=== PATIENT | male | born 1935 | race Caucasian/White ===

== ENCOUNTER 2018-04-20 00:29 | Inpatient (IN) | payer MEDICARE, BC ==
[2018-04-20] MEDS ORDERED: SODIUM CHLORIDE 0.9% 1,000 ML IV ONE (00:51)
[2018-04-20] MEDS ORDERED: SODIUM CHLORIDE 0.9% 2,000 ML IV ONE (00:52)
[2018-04-20 01:25] LABS: Basophils % (A) 0 %; Eosinophils % (A) 0 %; HGB 12.2 gm/dL (13.0-17.5); Lymphocytes # (A) 0.7 k/uL (1.0-4.8); Lymphocytes % (A) 4 %; MCH 34.3 pg (25.0-35.0); MCHC 33.1 g/dL (31.0-37.0); MCV 103.6 fL (80.0-100.0); Macrocytosis Slight; Mean Platelet Volume 8.7; Monocytes # (A) 0.9 k/uL (0-1.0); Monocytes % (A) 5 %; Neutrophils % (A) 91 %; Platelet Count 104 k/uL (150-450); RBC 3.57 m/uL (4.30-5.90); WBC 17.7 k/uL (3.8-10.6)
[2018-04-20 01:33] LABS: Glucose,Whole Blood 138 mg/dL (75-99)
[2018-04-20 01:36] LABS: ALT 59 U/L (21-72); AST 215 U/L (17-59); Albumin 3.3 g/dL (3.5-5.0); Alkaline Phosphatase 77 U/L (38-126); Anion Gap 14 mmol/L; Blood Urea Nitrogen 31 mg/dL (9-20); Calcium 8.7 mg/dL (8.4-10.2); Carbon Dioxide 16 mmol/L (22-30); Chloride 111 mmol/L (98-107); Glucose 146 mg/dL (74-99); Lipase 14 U/L (23-300); Potassium 4.7 mmol/L (3.5-5.1); Sodium 141 mmol/L (137-145); Total Bilirubin 2.7 mg/dL (0.2-1.3); Total Protein 6.5 g/dL (6.3-8.2)
[2018-04-20 01:37] LABS: INR 1.7 (<1.2); Partial Thromboplastin Time 24.4 sec (22.0-30.0)
[2018-04-20] MEDS ORDERED: IPRATROPIUM-ALBUTEROL 3 ML NEB INHALATION STA (02:10)
--- NOTE | 2018-04-20 02:15 | CT ---
EXAMINATION TYPE: CT brain wo con DATE OF EXAM: 04/20/2018 COMPARISON: None HISTORY: No prior, pt found on the ground by family, AMS CT DLP: 1622.80 mGycm Automated exposure control for dose reduction was used. FINDINGS: There is cerebral cortical atrophy. There is no mass effect nor midline shift. There is no sign of in tracranial hemorrhage. There is left parietal mild scalp soft tissue swelling. IMPRESSION: CEREBRAL ATROPHY. NO ACUTE INTRACRANIAL ABNORMALITY.
--- NOTE | 2018-04-20 02:17 | XR ---
EXAMINATION TYPE: XR pelvis AP view DATE OF EXAM: 04/20/2018 COMPARISON: 12/04/2011 HISTORY: Fall. Pain. TECHNIQUE: Single view. FINDINGS: Pelvic ring is intact. Proximal femurs appear intact. There is extensive vascular calcification. Sac roiliac joints appear intact. There is acetabular spurring. IMPRESSION: No acute abnormality of the pelvis. No change.
[2018-04-20 02:18] LABS: Creatine Kinase MB 57.8 ng/mL (0.0-2.4)
[2018-04-20 02:19] LABS: Troponin I 0.166 ng/mL (0.000-0.034)
--- NOTE | 2018-04-20 02:19 | XR ---
EXAMINATION TYPE: XR chest 1V DATE OF EXAM: 04/20/2018 COMPARISON: EXAMINATION TYPE: XR chest 1V DATE OF EXAM: 04/20/2018 COMPARISON: NONE HISTORY: Chest pain TECHNIQUE: Single view FINDINGS: There is poor inspiration. There is elevation of the left and right diaphragm. There is mil d pulmonary congestion. There are sternal wires. Thoracic aorta is atheromatous. IMPRESSION: Poor inspiration. Possible congestive heart failure. Limited exam.
--- NOTE | 2018-04-20 02:43 | ED ---
General Adult HPI - General Source: patient, family, EMS Mode of arrival: EMS Limitations: altered mental status, physical limitation <Nilo Garcia - Last Filed: 04/20/18 03:14> <Darlene Farmer - Last Filed: 04/25/18 23:20> - General Chief complaint: Fall Stated complaint: fall Time Seen by Provider: 04/20/18 00:35 - History of Present Illness Initial comments: This is an 83-year-old male presents emergency department via EMS for apparent fall area patient was found in the ground by family states that they believe these been on the ground for almost 24 hours. Patient apparently told EMS that he was trying to find something on the ground. The patient is confused and information is limited. Patient states that he hurts on his left hip. Denies any headache, dizziness, blurred vision, chest pain or shortness of breath. Patient does state that he is very thirsty, feels very weak and rundown. Family states that he is normally ambulatory, he does have some mild confusion baseline. Family does state that he has scheduled tomorrow for weight gain, increase abdominal size. (Nilo Garcia) - Related Data Home Medications Medication Instructions Recorded Confirmed Memantine [Namenda] 10 mg PO BID 04/20/18 04/20/18 Metoprolol Succinate [Toprol Xl] 25 mg PO DAILY 04/20/18 04/20/18 Simvastatin [Zocor] 20 mg PO HS 04/20/18 04/20/18 amLODIPine [Norvasc] 2.5 mg PO DAILY 04/20/18 04/20/18 metFORMIN HCL ER [Glucophage Xr] 500 mg PO PC-SUPPER 04/20/18 04/20/18 Allergies Allergy/AdvReac Type Severity Reaction Status Date / Time No Known Allergies Allergy Verified 04/20/18 09:01 Review of Systems ROS Other: All systems not noted in ROS Statement are negative. <Nilo Garcia - Last Filed: 04/20/18 03:14> ROS Other: All systems not noted in ROS Statement are negative. <Darlene Farmer - Last Filed: 04/25/18 23:20> ROS Statement: Those systems with pertinent positive or pertinent negative responses have been documented in the HPI. Past Medical History Past Medical History: Atrial Fibrillation, Dementia, Diabetes Mellitus, Hyperlipidemia, Hypertension Additional Past Medical History / Comment(s): bone marrow suppression. abdominal mass. aortic aneurysm. History of Any Multi-Drug Resistant Organisms: None Reported Past Surgical History: Coronary Bypass/CABG Additional Past Surgical History / Comment(s): quadruple bypass, Past Psychological History: No Psychological Hx Reported Smoking Status: Never smoker Past Alcohol Use History: None Reported Past Drug Use History: None Reported <Nilo Garcia M - Last Filed: 04/20/18 03:14> - Past Family History Father Family Medical History: Vascular Disorder Additional Family Medical History / Comment(s): Father from a ruptured aortic aneurysm. Mother Family Medical History: Dementia, Diabetes Mellitus Additional Family Medical History / Comment(s): Mother lived to be 100yrs old. Son(s) Family Medical History: Vascular Disorder Additional Family Medical History / Comment(s): Son from a ruptured aortic aneurysm. Family Additional Family Medical History / Comment(s): Unable to obtain family history at this time due to patient confusion and not available family members <Darlene Farmer - Last Filed: 04/25/18 23:20> General Exam Limitations: altered mental status (Patient confused), physical limitation General appearance: alert, in no apparent distress Head exam: Present: atraumatic, normocephalic, normal inspection Eye exam: Present: normal appearance, PERRL, EOMI. Absent: scleral icterus, conjunctival injection, periorbital swelling ENT exam: Present: mucous membranes dry, mucous membranes moist Neck exam: Present: normal inspection, full ROM. Absent: tenderness, meningismus, lymphadenopathy Respiratory exam: Present: normal lung sounds bilaterally. Absent: respiratory distress, wheezes, rales, rhonchi, stridor Cardiovascular Exam: Present: irregular rhythm, normal heart sounds. Absent: regular rate, normal rhythm, systolic murmur, diastolic murmur, rubs, gallop, clicks GI/Abdominal exam: Present: soft, normal bowel sounds. Absent: distended, tenderness, guarding, rebound, rigid Extremities exam: Present: pedal edema, other (Mild tenderness to left hip, lower extremities neurovascular intact) Back exam: Present: full ROM. Absent: tenderness Neurological exam: Present: alert, CN II-XII intact, reflexes normal. Absent: oriented X3, motor sensory deficit Skin exam: Present: warm, dry, normal color. Absent: intact (Sloughing of skin noted on the left hip and minimal on the right side), rash <Nilo Garcia - Last Filed: 04/20/18 03:14> Vital Signs 04/20/18 04/20/18 04/20/18 00:30 02:18 02:19 Temperature 96.8 F L Pulse Rate 73 70 72 Respiratory 18 24 Rate Blood Pressure 134/66 141/86 O2 Sat by Pulse 97 98 Oximetry 04/20/18 04/20/18 04/20/18 02:30 03:16 05:22 Temperature 97.3 F L Pulse Rate 73 80 76 Respiratory 22 18 Rate Blood Pressure 150/83 130/61 O2 Sat by Pulse 98 100 Oximetry 04/20/18 04/20/18 04/20/18 06:15 08:52 11:19 Temperature Pulse Rate 82 85 80 Respiratory 20 18 18 Rate Blood Pressure 160/69 141/86 143/69 O2 Sat by Pulse 97 97 100 Oximetry 04/20/18 04/20/18 04/20/18 13:25 17:45 18:44 Temperature 98.7 F 98.1 F Pulse Rate 79 75 81 Respiratory 18 20 20 Rate Blood Pressure 123/61 146/66 107/58 O2 Sat by Pulse 100 98 97 Oximetry EKG Findings - EKG Comments: EKG Findings:: EKG performed at 2:07 A. fib with a rate of 75 QRS 64 QT/QTC 434/ 484 <Nilo Garcia - Last Filed: 04/20/18 03:14> Medical Decision Making - Lab Data Result diagrams: 04/20/18 01:06 04/20/18 01:06 <Nilo Garcia - Last Filed: 04/20/18 03:14> - Lab Data Result diagrams: 04/24/18 05:40 04/24/18 05:40 <Darlene Farmer - Last Filed: 04/25/18 23:20> - Medical Decision Making 83-year-old male presented to the emergency department for fall. Patient is found to be in rhabdomyolysis secondary to falling and being on the ground for a prolonged period of time. Patient is dehydrated, does have some confusion which is worse per family. CT of the brain was obtained no acute findings. Patient had chest x-ray are which appears to be related to congestive heart failure with a BNP of 4200. X-ray of pelvis was obtained which showed no acute fracture though he did complain of left hip pain and appeared to have's deformity CT is obtained no acute fracture. Patient was given initial 2 L bolus of fluid secondary to rhabdomyolysis, maintenance at 100. Muñoz was placed for accurate output at this time. Patient's troponin was elevated time repeat troponin will be obtained 2. Patient has no current complaints of chest pain patient had EKG which shows A. fib. Patient will be admitted for management of his rhabdomyolysis, CHF, dehydration, confusion, unsteady gait, weakness. (Nilo Garcia) Patient care was signed out to me by MAGDI Rocha. Patient presented to the ER acute distress after a mechanical fall at home and being on the ground for approximately 24 hours. Labs thus far had indicated the patient had rhabdomyolysis and a mildly elevated troponin. At time of sign out patient was receiving IV fluids, x-rays and CTs revealed no acute injuries. Urinalysis was pending. Urinalysis resulted with no evidence of urinary tract infection. This time is no indication for antibiotics. Patient will be treated with IV fluids, however considering his advanced age and respiratory status want to be gentle with this. Patient care was discussed with Dr. Acuna of the [facility] who accepts the admission. (Darlene Farmer) - Lab Data Lab Results 04/20/18 04/20/18 04/20/18 Range/Units 01:03 01:06 01:06 WBC 17.7 H (3.8-10.6) k/uL RBC 3.57 L (4.30-5.90) m/uL Hgb 12.2 L (13.0-17.5) gm/dL Hct 37.0 L (39.0-53.0) % MCV 103.6 H (80.0-100.0) fL MCH 34.3 (25.0-35.0) pg MCHC 33.1 (31.0-37.0) g/dL RDW 14.0 (11.5-15.5) % Plt Count 104 L (150-450) k/uL Neutrophils % 91 % Lymphocytes % 4 % Monocytes % 5 % Eosinophils % 0 % Basophils % 0 % Neutrophils # 16.0 H (1.3-7.7) k/uL Lymphocytes # 0.7 L (1.0-4.8) k/uL Monocytes # 0.9 (0-1.0) k/uL Eosinophils # 0.0 (0-0.7) k/uL Basophils # 0.0 (0-0.2) k/uL Macrocytosis Slight PT (9.0-12.0) sec INR (<1.2) APTT (22.0-30.0) sec Sodium (137-145) mmol/L Potassium (3.5-5.1) mmol/L Chloride (98-107) mmol/L Carbon Dioxide (22-30) mmol/L Anion Gap mmol/L BUN (9-20) mg/dL Creatinine (0.66-1.25) mg/dL Est GFR (CKD-EPI)AfAm (>60 ml/min/1.73 sqM) Est GFR (CKD-EPI)NonAf (>60 ml/min/1.73 sqM) Glucose (74-99) mg/dL POC Glucose (mg/dL) 138 H (75-99) mg/dL POC Glu Portable [employer] Tool Repairer ID Marilee Quach Calcium (8.4-10.2) mg/dL Total Bilirubin (0.2-1.3) mg/dL AST (17-59) U/L ALT (21-72) U/L Alkaline Phosphatase (38-126) U/L Total Creatine Kinase 5245 H* (55-170) U/L CK-MB (CK-2) 57.8 H (0.0-2.4) ng/mL CK-MB (CK-2) Rel Index Troponin I 0.166 H* (0.000-0.034) ng/mL NT-Pro-B Natriuret Pep pg/mL Total Protein (6.3-8.2) g/dL Albumin (3.5-5.0) g/dL Lipase (23-300) U/L Urine Color Urine Appearance (Clear) Urine pH (5.0-8.0) Ur Specific Jay Em (1.001-1.035) Urine Protein (Negative) Urine Glucose (UA) (Negative) Urine Ketones (Negative) Urine Blood (Negative) Urine Nitrite (Negative) Urine Bilirubin (Negative) Urine Urobilinogen (<2.0) mg/dL Ur Leukocyte Esterase (Negative) Urine RBC (0-5) /hpf Urine WBC (0-5) /hpf Ur Squamous Epith Cells (0-4) /hpf Urine Mucus (None) /hpf 04/20/18 04/20/18 04/20/18 Range/Units 01:06 01:06 01:06 WBC (3.8-10.6) k/uL RBC (4.30-5.90) m/uL Hgb (13.0-17.5) gm/dL Hct (39.0-53.0) % MCV (80.0-100.0) fL MCH (25.0-35.0) pg MCHC (31.0-37.0) g/dL RDW (11.5-15.5) % Plt Count (150-450) k/uL Neutrophils % % Lymphocytes % % Monocytes % % Eosinophils % % Basophils % % Neutrophils # (1.3-7.7) k/uL Lymphocytes # (1.0-4.8) k/uL Monocytes # (0-1.0) k/uL Eosinophils # (0-0.7) k/uL Basophils # (0-0.2) k/uL Macrocytosis PT 16.0 H (9.0-12.0) sec INR 1.7 H (<1.2) APTT 24.4 (22.0-30.0) sec Sodium 141 (137-145) mmol/L Potassium 4.7 (3.5-5.1) mmol/L Chloride 111 H (98-107) mmol/L Carbon Dioxide 16 L (22-30) mmol/L Anion Gap 14 mmol/L BUN 31 H (9-20) mg/dL Creatinine 0.73 (0.66-1.25) mg/dL Est GFR (CKD-EPI)AfAm >90 (>60 ml/min/1.73 sqM) Est GFR (CKD-EPI)NonAf 85 (>60 ml/min/1.73 sqM) Glucose 146 H (74-99) mg/dL POC Glucose (mg/dL) (75-99) mg/dL POC Glu Portable [employer] Tool Repairer ID Calcium 8.7 (8.4-10.2) mg/dL Total Bilirubin 2.7 H (0.2-1.3) mg/dL AST 215 H (17-59) U/L ALT 59 (21-72) U/L Alkaline Phosphatase 77 (38-126) U/L Total Creatine Kinase (55-170) U/L CK-MB (CK-2) (0.0-2.4) ng/mL CK-MB (CK-2) Rel Index Troponin I (0.000-0.034) ng/mL NT-Pro-B Natriuret Pep 4370 pg/mL Total Protein 6.5 (6.3-8.2) g/dL Albumin 3.3 L (3.5-5.0) g/dL Lipase 14 L (23-300) U/L Urine Color Urine Appearance (Clear) Urine pH (5.0-8.0) Ur Specific Jay Em (1.001-1.035) Urine Protein (Negative) Urine Glucose (UA) (Negative) Urine Ketones (Negative) Urine Blood (Negative) Urine Nitrite (Negative) Urine Bilirubin (Negative) Urine Urobilinogen (<2.0) mg/dL Ur Leukocyte Esterase (Negative) Urine RBC (0-5) /hpf Urine WBC (0-5) /hpf Ur Squamous Epith Cells (0-4) /hpf Urine Mucus (None) /hpf 04/20/18 Range/Units 03:08 WBC (3.8-10.6) k/uL RBC (4.30-5.90) m/uL Hgb (13.0-17.5) gm/dL Hct (39.0-53.0) % MCV (80.0-100.0) fL MCH (25.0-35.0) pg MCHC (31.0-37.0) g/dL RDW (11.5-15.5) % Plt Count (150-450) k/uL Neutrophils % % Lymphocytes % % Monocytes % % Eosinophils % % Basophils % % Neutrophils # (1.3-7.7) k/uL Lymphocytes # (1.0-4.8) k/uL Monocytes # (0-1.0) k/uL Eosinophils # (0-0.7) k/uL Basophils # (0-0.2) k/uL Macrocytosis PT (9.0-12.0) sec INR (<1.2) APTT (22.0-30.0) sec Sodium (137-145) mmol/L Potassium (3.5-5.1) mmol/L Chloride (98-107) mmol/L Carbon Dioxide (22-30) mmol/L Anion Gap mmol/L BUN (9-20) mg/dL Creatinine (0.66-1.25) mg/dL Est GFR (CKD-EPI)AfAm (>60 ml/min/1.73 sqM) Est GFR (CKD-EPI)NonAf (>60 ml/min/1.73 sqM) Glucose (74-99) mg/dL POC Glucose (mg/dL) (75-99) mg/dL POC Glu Portable Power Tool Repairer ID Calcium (8.4-10.2) mg/dL Total Bilirubin (0.2-1.3) mg/dL AST (17-59) U/L ALT (21-72) U/L Alkaline Phosphatase (38-126) U/L Total Creatine Kinase (55-170) U/L CK-MB (CK-2) (0.0-2.4) ng/mL CK-MB (CK-2) Rel Index Troponin I (0.000-0.034) ng/mL NT-Pro-B Natriuret Pep pg/mL Total Protein (6.3-8.2) g/dL Albumin (3.5-5.0) g/dL Lipase (23-300) U/L Urine Color Yellow Urine Appearance Clear (Clear) Urine pH 5.5 (5.0-8.0) Ur Specific Jay Em 1.027 (1.001-1.035) Urine Protein 1+ H (Negative) Urine Glucose (UA) Negative (Negative) Urine Ketones 1+ H (Negative) Urine Blood Moderate H (Negative) Urine Nitrite Negative (Negative) Urine Bilirubin Negative (Negative) Urine Urobilinogen 2.0 (<2.0) mg/dL Ur Leukocyte Esterase Negative (Negative) Urine RBC 1 (0-5) /hpf Urine WBC 1 (0-5) /hpf Ur Squamous Epith Cells <1 (0-4) /hpf Urine Mucus Rare H (None) /hpf Disposition <Nilo Garcia M - Last Filed: 04/20/18 03:14> <Darlene Farmer - Last Filed: 04/25/18 23:20> Clinical Impression: Fall, Rhabdomyolysis, CHF (congestive heart failure), Dehydration, Confusion, Weakness, Anemia, Elevated troponin, A-fib Disposition: ADMITTED IP TO THIS HOSP
--- NOTE | 2018-04-20 03:08 | CT ---
EXAMINATION TYPE: CT hip LT wo con DATE OF EXAM: 04/20/2018 COMPARISON: None HISTORY: No prior, fall; evaluate for trauma pain CT DLP: 1056.80 mGycm Automated exposure control for dose reduction was used. FINDINGS: There is osteopenia. There is extensive vascular calcification. The proximal left femur is intact wit hout evidence of a fracture. The acetabulum is intact. There is mild acetabular spurring. The left sa croiliac joint is intact. There is subcutaneous swelling over the lateral aspect of the left hip. IMPRESSION: SOFT TISSUE SWELLING. NO FRACTURE SEEN. OSTEOPENIA.
[2018-04-20] MEDS: SODIUM CHLORIDE 0.9% 1,000 ML IV SCH ×4 (03:19→23:10)
[2018-04-20 03:23] LABS: Appearance,Urine Clear (Clear); Bilirubin,Urine Negative (Negative); Blood,Urine Moderate (Negative); Color,Urine Yellow; Glucose,Urine (UA) Negative (Negative); Ketones,Urine 1+ (Negative); Leukocyte Esterase,Urine Negative (Negative); Mucus,Urine Rare /hpf; Nitrite,Urine Negative (Negative); PH, Urine 5.5 (5.0-8.0); Protein,Urine 1+ (Negative); RBC,Urine 1 /hpf (0-5); Specific Gravity,Urine 1.027 (1.001-1.035); Squamous Epithelial Cell,Urine <1 /hpf (0-4); WBC,Urine 1 /hpf (0-5)
[2018-04-20] MEDS ORDERED: NALOXONE 0.4 MG/ML 1 ML VIAL IV PRN (04:34)
--- NOTE | 2018-04-20 06:56 | P.HPIM ---
History of Present Illness H&P Date: 04/20/18 Chief Complaint: confusion, fall at home 83 year old male with history of afib, and dementia. patient is alert but confused , unable to provide any meaningful history. His daughter has just stepped out to sleep for couple hours in the parking lot. history obtained by talking to the patient , reviewing medical records and talking to patient nurse. patient was brought to the hospital after being found on the ground by his family who believes that he's been on the ground for at least 24 hours. Patient at baseline ambulates using a walker. However for some reason he is thought to have fell down, when the patient is asked he said he was looking for something on the ground. There is no report of soiling with urine or feces or vomitus. It seems like when the patient was found he was alert and awake but confused more than his baseline. He was complaining of left hip pain, EMS was contacted and was brought to the hospital. Family reported that the only changes in his health status as they have noticed that his belly was growing bigger and he was having some edema in his legs for which she was scheduled for an ultrasound of the abdomen today to rule out any abdominal masses. Upon further workup, no acute fractures were identified, CT of the head showed no acute process. Labwork showed elevated CPK, and elevated liver enzymes. Patient denies any chest pain or trouble breathing. Patient received 2 L boluses of IV fluid normal saline in the ED after which she was wheezy for short period but then balance resolved with inhalers. Review of Systems Unable to obtain any meaningful review of systems due to patient confusion Past Medical History Past Medical History: Atrial Fibrillation, Dementia, Diabetes Mellitus, Hyperlipidemia, Hypertension Additional Past Medical History / Comment(s): bone marrow suppression. abdominal mass. aortic aneurysm. History of Any Multi-Drug Resistant Organisms: None Reported Past Surgical History: Coronary Bypass/CABG Additional Past Surgical History / Comment(s): quadruple bypass, Past Psychological History: No Psychological Hx Reported Smoking Status: Never smoker Past Alcohol Use History: None Reported Past Drug Use History: None Reported - Past Family History Family Additional Family Medical History / Comment(s): Unable to obtain family history at this time due to patient confusion and not available family members Medications and Allergies Home Medications Medication Instructions Recorded Confirmed Type Memantine [Namenda] 2.5 mg PO DAILY 04/20/18 04/20/18 History Metoprolol Succinate (ER) [Toprol 25 mg PO DAILY 04/20/18 04/20/18 History XL] Simvastatin [Zocor] 20 mg PO HS 04/20/18 04/20/18 History amLODIPine [Norvasc] 10 mg PO DAILY 04/20/18 04/20/18 History metFORMIN HCL ER [Glucophage Xr] 500 mg PO PC-SUPPER 04/20/18 04/20/18 History Allergies Allergy/AdvReac Type Severity Reaction Status Date / Time No Known Allergies Allergy Verified 04/20/18 00:57 Physical Exam Vitals: Vital Signs Temp Pulse Resp BP Pulse Ox 04/20/18 05:22 76 18 130/61 100 04/20/18 03:16 97.3 F L 80 22 150/83 98 04/20/18 02:30 73 04/20/18 02:19 72 04/20/18 02:18 70 24 141/86 98 04/20/18 00:30 96.8 F L 73 18 134/66 97 Intake and Output 04/19/18 04/19/18 04/20/18 14:59 22:59 06:59 Output Total 50 Balance -50 Output: Urine 50 Uretheral (Muñoz) 50 Other: Weight 81.647 kg Constitutional: No acute distress, conversant, pleasantly confused, seems like laying comfortable in his bed Eyes: Slight hint of scleral jaundice , moist conjunctiva, no lid-lag Pupils equal round reactive to light ENMT: NC/AT, dry mucous membranes Oropharynx clear, no erythema, or exudates Neck: Supple, limited active range of motion of the neck due to severe weakness , no palpable masses, No JVD No carotid bruits No thyromegaly Lungs: Clear to auscultation Clear to percussion Normal respiratory effort, no accessory muscle use Cardiovascular: Heart irregular in rate and rhythm, No murmurs, gallops, or rubs +1 peripheral edema bilaterally Abdominal: Soft, mild distention Nontender, no guarding, rebound or rigidity Abdomen moving with respiration Normoactive bowel sounds Palpable hepatomegaly, No splenomegaly No abdominal wall hernia noted Skin: Normal temperature, tone, texture, turgor No induration No subcutaneous nodules Patient has excoriation in the skin folds of the lower abdomen and groin two Nonblanching 1 x 1 cm areas over the left buttock Extremities: No digital cyanosis No clubbing Pedal pulses intact and symmetrical Radial pulses intact and symmetrical No calf tenderness Psychiatric: Alert and oriented to self only Cooperative with exam poor judgment Neuro Muscles Strength showing extreme weakness in all 4 extremities with sporadic areas that shows a strength of -3/5 with encouragement but not persistent Sensation to light touch grossly present throughout however unreliable Cranial nerves II-XII grossly intact (again this wasn't very reliable due to difficulties with patient understanding and cooperation with neuro exam) No focal sensory deficits could be identified Lymphatics: no palpable cervical or supraclavicular , or inguinal lymph nodes Results CBC & Chem 7: 04/20/18 01:06 04/20/18 01:06 Labs: Abnormal Lab Results - Last 24 Hours (Table) 04/20/18 04/20/18 04/20/18 Range/Units 01:03 01:06 01:06 WBC 17.7 H (3.8-10.6) k/uL RBC 3.57 L (4.30-5.90) m/uL Hgb 12.2 L (13.0-17.5) gm/dL Hct 37.0 L (39.0-53.0) % MCV 103.6 H (80.0-100.0) fL Plt Count 104 L (150-450) k/uL Neutrophils # 16.0 H (1.3-7.7) k/uL Lymphocytes # 0.7 L (1.0-4.8) k/uL PT (9.0-12.0) sec INR (<1.2) Chloride (98-107) mmol/L Carbon Dioxide (22-30) mmol/L BUN (9-20) mg/dL Glucose (74-99) mg/dL POC Glucose (mg/dL) 138 H (75-99) mg/dL Total Bilirubin (0.2-1.3) mg/dL AST (17-59) U/L Total Creatine Kinase 5245 H* (55-170) U/L CK-MB (CK-2) 57.8 H (0.0-2.4) ng/mL Troponin I 0.166 H* (0.000-0.034) ng/mL Albumin (3.5-5.0) g/dL Lipase (23-300) U/L Urine Protein (Negative) Urine Ketones (Negative) Urine Blood (Negative) Urine Mucus (None) /hpf 04/20/18 04/20/18 04/20/18 Range/Units 01:06 01:06 03:08 WBC (3.8-10.6) k/uL RBC (4.30-5.90) m/uL Hgb (13.0-17.5) gm/dL Hct (39.0-53.0) % MCV (80.0-100.0) fL Plt Count (150-450) k/uL Neutrophils # (1.3-7.7) k/uL Lymphocytes # (1.0-4.8) k/uL PT 16.0 H (9.0-12.0) sec INR 1.7 H (<1.2) Chloride 111 H (98-107) mmol/L Carbon Dioxide 16 L (22-30) mmol/L BUN 31 H (9-20) mg/dL Glucose 146 H (74-99) mg/dL POC Glucose (mg/dL) (75-99) mg/dL Total Bilirubin 2.7 H (0.2-1.3) mg/dL AST 215 H (17-59) U/L Total Creatine Kinase (55-170) U/L CK-MB (CK-2) (0.0-2.4) ng/mL Troponin I (0.000-0.034) ng/mL Albumin 3.3 L (3.5-5.0) g/dL Lipase 14 L (23-300) U/L Urine Protein 1+ H (Negative) Urine Ketones 1+ H (Negative) Urine Blood Moderate H (Negative) Urine Mucus Rare H (None) /hpf Assessment and Plan Assessment: 83-year-old male with history of A. fib, diabetes mellitus, hypertension. Patient admitted as an inpatient with anticipated length of stay of more than 48 hours due to acute rhabdo myelolysis as patient was found on the ground and expected to had prolonged time on the ground. Patient has baseline confusion which seems to be worse at this time, he was also found to have elevated troponins however patient denies any chest pain or trouble breathing. Patient also have elevated liver enzymes with reports of increasing abdominal size and bilateral leg edema for which patient was scheduled to have abdominal ultrasound today to rule out any abdominal masses Patient received 2 L normal saline boluses upon presentation after which she was wheezy for short period per ER, was resolved and inhalers. Currently his lung exam is clear Plan: Acute rhabdomyolysis secondary to prolonged period of lying on the ground Patient received 2 L normal saline initially Muñoz catheter to monitor urine output Continue with gentle hydration due to initial response to 2 L normal saline where he was wheezy and chest x-ray showed some evidence of congestion Follow-up CPK Hold statin Acute metabolic encephalopathy secondary to acute rhabdo and acidosis Management as above Elevated troponin, rule out acute coronary syndrome This could be due to dehydration and demand ischemia Cardiac monitoring Trend cardiac enzymes Patient denies any chest pain or trouble breathing at this time Leukocytosis Bicytopenia with macrocytic anemia and thrombocytopenia No reported bleeding Stage I pressure ulcer present on admission possibly due to prolonged period On the ground Wound care Diabetes mellitus on oral hypoglycemic agents Hold metformin Check lactic acid Insulin sliding scale Hypertension, currently controlled Continue amlodipine and metoprolol History of dementia Functional status, patient ambulates using a walker at baseline Fall precautions PT/OT Chronic A. fib not on anticoagulation Currently rate controlled Family wasn't available at this time, daughter just stepped out to get some sleep and she will be back in couple hours Surrogate decision-maker: Patient daughter CODE STATUS: Patient cant make a decision on CODE STATUS due to confusion DVT prophylaxis: Heparin subcu 3 times a day Discussed with: Patient, ER, RN Anticipated discharge: 48-[address]: Subacute rehab A total of 60 minutes was spent on the care of this complex patient more than 50 % of the time was spent in counseling and care coordination.
[2018-04-20 08:22] LABS: ALT 57 U/L (21-72); AST 184 U/L (17-59); Albumin 2.6 g/dL (3.5-5.0); Alkaline Phosphatase 69 U/L (38-126); Anion Gap 7 mmol/L; Blood Urea Nitrogen 32 mg/dL (9-20); Calcium 8.3 mg/dL (8.4-10.2); Carbon Dioxide 21 mmol/L (22-30); Chloride 113 mmol/L (98-107); Glucose 131 mg/dL (74-99); Sodium 141 mmol/L (137-145); Total Protein 5.4 g/dL (6.3-8.2)
[2018-04-20 08:32] LABS: Creatine Kinase 3196 U/L (55-170)
[2018-04-20 08:36] LABS: Basophils % (A) 0 %; Eosinophils % (A) 0 %; HCT 32.3 % (39.0-53.0); HGB 10.8 gm/dL (13.0-17.5); Lymphocytes # (A) 0.7 k/uL (1.0-4.8); Lymphocytes % (A) 5 %; MCH 34.5 pg (25.0-35.0); MCHC 33.4 g/dL (31.0-37.0); MCV 103.2 fL (80.0-100.0); Macrocytosis Slight; Mean Platelet Volume 8.2; Monocytes # (A) 0.8 k/uL (0-1.0); Monocytes % (A) 6 %; Neutrophils % (A) 89 %; RBC 3.13 m/uL (4.30-5.90); RDW 14.2 % (11.5-15.5); WBC 14.6 k/uL (3.8-10.6)
[2018-04-20] MEDS: INSULIN ASPART 100 UNIT/ML 1 ML 10 ML VIAL SQ SCH ×4 (09:00→21:25)
[2018-04-20] MEDS ORDERED: amLODIPine 10 MG TAB PO SCH (09:00)
[2018-04-20] MEDS ORDERED: MEMANTINE 5 MG TAB PO SCH (09:00)
[2018-04-20] MEDS: HEPARIN SODIUM,PORCINE 5,000 UNIT/ML 1 ML VIAL SQ SCH ×3 (09:01→23:09)
[2018-04-20 09:08] LABS: Platelet Count 85 k/uL (150-450); Poikilocytosis (M) Present
[2018-04-20 09:10] LABS: Glucose,Whole Blood 140 mg/dL (75-99)
[2018-04-20] MEDS: amLODIPine 2.5 MG TAB PO SCH (10:29)
[2018-04-20] MEDS: FAMOTIDINE 20 MG TAB PO SCH ×2 (10:30→20:59)
[2018-04-20] MEDS: MEMANTINE 10 MG TAB PO SCH ×2 (10:31→20:59)
[2018-04-20] MEDS: NYSTATIN 100,000 UNIT/GM POWD 15 GM TOPICAL SCH ×3 (10:33→22:42)
[2018-04-20] MEDS: METOPROLOL SUCCINATE (ER) 25 MG TAB.ER.24H PO SCH (11:24)
--- NOTE | 2018-04-20 11:27 | US ---
EXAMINATION TYPE: US abdomen complete DATE OF EXAM: 04/20/2018 COMPARISON: CLINICAL HISTORY: hepatomegaly , elevated liver enzymes. Poor historian. Patient unable to turn on s linda or hold breath. Patient was scanned portable in the ER EXAM MEASUREMENTS: Liver Length: 9.8 cm Gallbladder Wall: 0.3 cm Spleen: 11.7 cm Right Kidney: 10.1 x 5.3 x 5.2 cm Left Kidney: 10.0 x 4.9 x 5.2 cm Suboptimal visualization due to overlying bowel gas, patient unable to turn or hold breath Pancreas: Obscured by bowel gas Liver: Appears small with nodular contour. Not well visualized due to ascites and overlying bowel ga s Gallbladder: no stones visualized, suboptimal visualization. LLD deferred due to patient unable to turn. Evidence for sonographic Herrera's sign: neg CBD: Obscured by overlying bowel gas CHD: obscured by overlying bowel gas Spleen: wnl, limited visualization due to bowel gas and ascites Right Kidney: Anechoic focus compatible with renal sinus cyst= 2.2 x 2.4 x 2.0cm Left Kidney: limited visualization due to bowel gas, cortical medullary differentiation is maintaine d in both kidneys Upper IVC: Obscured by overlying bowel gas Abd Aorta: Obscured by overlying bowel gas Ascites seen in all four quadrants IMPRESSION: Ascites. Limited exam. Correlate for cirrhosis. Gallbladder wall thickening may be due to ascites.
[2018-04-20 13:49] LABS: Glucose,Whole Blood 142 mg/dL (75-99)
[2018-04-20 16:11] LABS: Hemoglobin A1C 5.3 % (4.0-6.0)
[2018-04-20 18:03] LABS: Glucose,Whole Blood 132 mg/dL (75-99)
--- NOTE | 2018-04-20 18:20 | P.PN ---
Subjective Progress Note Date: 04/20/18 The patient was seen and examined with daughter and son-in-law at bedside. He was confused, and oriented only to self. He was pleasant however, and denied having any active complaints. Objective - Vital Signs Vital signs: Vital Signs Temp 98.7 F 04/20/18 17:45 Pulse 75 04/20/18 17:45 Resp 20 04/20/18 17:45 BP 146/66 04/20/18 17:45 Pulse Ox 98 04/20/18 17:45 Intake & Output 04/19/18 04/20/18 04/20/18 18:59 06:59 18:59 Output Total 60 Balance -60 Weight 81.647 kg Output: Urine 60 Uretheral (Muñoz) 50 Other: # Bowel Movements 3 - Exam General: Non-toxic, in no acute distress HEENT: NC/AT, anicteric sclerae, moist conjunctiva, no lid-lag, PERRLA, oropharynx dry, no erythema, exudates Cardiovascular: S1/S2 wnl, no murmurs, rubs, or gallops Lungs: Clear to auscultation, normal respiratory effort, no accessory muscle use Abdominal: Mildly distended, non-tender, without guarding or rebound Skin: Warm, dry Extremities: No edema or contractures Psychiatric: Oriented only to person, pleasant, conversant Neuro: Moving all extremities, intention tremor of R hand noted, not following all commands, unable to perform complete neurological examination - Labs CBC & Chem 7: 04/20/18 07:56 04/20/18 07:56 Labs: Abnormal Lab Results - Last 24 Hours (Table) 04/20/18 04/20/18 04/20/18 Range/Units 01:03 01:06 01:06 WBC 17.7 H (3.8-10.6) k/uL RBC 3.57 L (4.30-5.90) m/uL Hgb 12.2 L (13.0-17.5) gm/dL Hct 37.0 L (39.0-53.0) % MCV 103.6 H (80.0-100.0) fL Plt Count 104 L (150-450) k/uL Neutrophils # 16.0 H (1.3-7.7) k/uL Lymphocytes # 0.7 L (1.0-4.8) k/uL PT (9.0-12.0) sec INR (<1.2) Chloride (98-107) mmol/L Carbon Dioxide (22-30) mmol/L BUN (9-20) mg/dL Glucose (74-99) mg/dL POC Glucose (mg/dL) 138 H (75-99) mg/dL Plasma Lactic Acid Fernando (0.7-2.0) mmol/L Calcium (8.4-10.2) mg/dL Total Bilirubin (0.2-1.3) mg/dL AST (17-59) U/L Creatine Kinase (55-170) U/L Total Creatine Kinase 5245 H* (55-170) U/L CK-MB (CK-2) 57.8 H (0.0-2.4) ng/mL Troponin I 0.166 H* (0.000-0.034) ng/mL Total Protein (6.3-8.2) g/dL Albumin (3.5-5.0) g/dL Lipase (23-300) U/L Urine Protein (Negative) Urine Ketones (Negative) Urine Blood (Negative) Urine Mucus (None) /hpf 04/20/18 04/20/18 04/20/18 Range/Units 01:06 01:06 03:08 WBC (3.8-10.6) k/uL RBC (4.30-5.90) m/uL Hgb (13.0-17.5) gm/dL Hct (39.0-53.0) % MCV (80.0-100.0) fL Plt Count (150-450) k/uL Neutrophils # (1.3-7.7) k/uL Lymphocytes # (1.0-4.8) k/uL PT 16.0 H (9.0-12.0) sec INR 1.7 H (<1.2) Chloride 111 H (98-107) mmol/L Carbon Dioxide 16 L (22-30) mmol/L BUN 31 H (9-20) mg/dL Glucose 146 H (74-99) mg/dL POC Glucose (mg/dL) (75-99) mg/dL Plasma Lactic Acid Fernando (0.7-2.0) mmol/L Calcium (8.4-10.2) mg/dL Total Bilirubin 2.7 H (0.2-1.3) mg/dL AST 215 H (17-59) U/L Creatine Kinase (55-170) U/L Total Creatine Kinase (55-170) U/L CK-MB (CK-2) (0.0-2.4) ng/mL Troponin I (0.000-0.034) ng/mL Total Protein (6.3-8.2) g/dL Albumin 3.3 L (3.5-5.0) g/dL Lipase 14 L (23-300) U/L Urine Protein 1+ H (Negative) Urine Ketones 1+ H (Negative) Urine Blood Moderate H (Negative) Urine Mucus Rare H (None) /hpf 04/20/18 04/20/18 04/20/18 Range/Units 07:56 07:56 07:56 WBC 14.6 H (3.8-10.6) k/uL RBC 3.13 L (4.30-5.90) m/uL Hgb 10.8 L (13.0-17.5) gm/dL Hct 32.3 L (39.0-53.0) % MCV 103.2 H (80.0-100.0) fL Plt Count 85 L (150-450) k/uL Neutrophils # 13.0 H (1.3-7.7) k/uL Lymphocytes # 0.7 L (1.0-4.8) k/uL PT (9.0-12.0) sec INR (<1.2) Chloride 113 H (98-107) mmol/L Carbon Dioxide 21 L (22-30) mmol/L BUN 32 H (9-20) mg/dL Glucose 131 H (74-99) mg/dL POC Glucose (mg/dL) (75-99) mg/dL Plasma Lactic Acid Fernando 3.2 H* (0.7-2.0) mmol/L Calcium 8.3 L (8.4-10.2) mg/dL Total Bilirubin 2.0 H (0.2-1.3) mg/dL AST 184 H (17-59) U/L Creatine Kinase 3196 H* (55-170) U/L Total Creatine Kinase (55-170) U/L CK-MB (CK-2) (0.0-2.4) ng/mL Troponin I (0.000-0.034) ng/mL Total Protein 5.4 L (6.3-8.2) g/dL Albumin 2.6 L (3.5-5.0) g/dL Lipase (23-300) U/L Urine Protein (Negative) Urine Ketones (Negative) Urine Blood (Negative) Urine Mucus (None) /hpf 04/20/18 04/20/18 04/20/18 Range/Units 08:55 11:31 13:34 WBC (3.8-10.6) k/uL RBC (4.30-5.90) m/uL Hgb (13.0-17.5) gm/dL Hct (39.0-53.0) % MCV (80.0-100.0) fL Plt Count (150-450) k/uL Neutrophils # (1.3-7.7) k/uL Lymphocytes # (1.0-4.8) k/uL PT (9.0-12.0) sec INR (<1.2) Chloride (98-107) mmol/L Carbon Dioxide (22-30) mmol/L BUN (9-20) mg/dL Glucose (74-99) mg/dL POC Glucose (mg/dL) 140 H 142 H (75-99) mg/dL Plasma Lactic Acid Fernando 2.6 H* (0.7-2.0) mmol/L Calcium (8.4-10.2) mg/dL Total Bilirubin (0.2-1.3) mg/dL AST (17-59) U/L Creatine Kinase (55-170) U/L Total Creatine Kinase (55-170) U/L CK-MB (CK-2) (0.0-2.4) ng/mL Troponin I (0.000-0.034) ng/mL Total Protein (6.3-8.2) g/dL Albumin (3.5-5.0) g/dL Lipase (23-300) U/L Urine Protein (Negative) Urine Ketones (Negative) Urine Blood (Negative) Urine Mucus (None) /hpf 04/20/18 Range/Units 17:55 WBC (3.8-10.6) k/uL RBC (4.30-5.90) m/uL Hgb (13.0-17.5) gm/dL Hct (39.0-53.0) % MCV (80.0-100.0) fL Plt Count (150-450) k/uL Neutrophils # (1.3-7.7) k/uL Lymphocytes # (1.0-4.8) k/uL PT (9.0-12.0) sec INR (<1.2) Chloride (98-107) mmol/L Carbon Dioxide (22-30) mmol/L BUN (9-20) mg/dL Glucose (74-99) mg/dL POC Glucose (mg/dL) 132 H (75-99) mg/dL Plasma Lactic Acid Fernando (0.7-2.0) mmol/L Calcium (8.4-10.2) mg/dL Total Bilirubin (0.2-1.3) mg/dL AST (17-59) U/L Creatine Kinase (55-170) U/L Total Creatine Kinase (55-170) U/L CK-MB (CK-2) (0.0-2.4) ng/mL Troponin I (0.000-0.034) ng/mL Total Protein (6.3-8.2) g/dL Albumin (3.5-5.0) g/dL Lipase (23-300) U/L Urine Protein (Negative) Urine Ketones (Negative) Urine Blood (Negative) Urine Mucus (None) /hpf Assessment and Plan Plan: Rhabdomyolysis, likely secondary to dehydration versus fall and prolonged period on ground -Continue with gentle hydration and monitor for signs of fluid overload -Obtain chest x-ray in a.m. -Continue to follow CK levels -We will hold statin for now Altered mental status, likely metabolic encephalopathy secondary to rhabdomyolysis and acidosis -Continue with hydration, monitor lactate levels, and follow electrolytes Elevated troponins -Possibly secondary to dehydration versus demand ischemia -Will trend -Telemetry monitoring DM Type 2 -Will hold oral hypoglycemic agents -Monitor lactate level -Continue with insulin sliding scale HTN, controlled -C/w Norvasc 2.5 mg qd, Toprol 25 mg qd Leukocytosis - No signs of active infection for now will monitor. Macrocytic anemia and thrombocytopenia -Will monitor for now Afib, not on anticoagulation for now DVT//GI prophyl - Heparin subq - Pepcid
[2018-04-20 21:06] LABS: Glucose,Whole Blood 115 mg/dL (75-99)
[2018-04-21] MEDS ORDERED: HALOPERIDOL LACTATE 5 MG/ML 1 ML VIAL IM PRN (03:38)
[2018-04-21 06:01] LABS: Glucose,Whole Blood 138 mg/dL (75-99)
[2018-04-21 06:04] LABS: HCT 29.9 % (39.0-53.0); HGB 9.9 gm/dL (13.0-17.5); MCH 34.5 pg (25.0-35.0); MCV 104.4 fL (80.0-100.0); Macrocytosis Slight; Mean Platelet Volume 8.5; RBC 2.87 m/uL (4.30-5.90); RDW 14.2 % (11.5-15.5); WBC 9.5 k/uL (3.8-10.6)
[2018-04-21 06:11] LABS: Platelet Count 60 k/uL (150-450)
[2018-04-21 06:16] LABS: ALT 60 U/L (21-72); AST 148 U/L (17-59); Albumin 2.3 g/dL (3.5-5.0); Alkaline Phosphatase 65 U/L (38-126); Anion Gap 3 mmol/L; Blood Urea Nitrogen 32 mg/dL (9-20); Carbon Dioxide 23 mmol/L (22-30); Chloride 113 mmol/L (98-107); Glucose 109 mg/dL (74-99); Potassium 3.9 mmol/L (3.5-5.1); Sodium 139 mmol/L (137-145); Total Bilirubin 1.4 mg/dL (0.2-1.3); Total Protein 4.9 g/dL (6.3-8.2)
[2018-04-21] MEDS: INSULIN ASPART 100 UNIT/ML 1 ML 10 ML VIAL SQ SCH ×4 (06:16→21:00)
[2018-04-21 06:28] LABS: Creatine Kinase 1186 U/L (55-170)
--- NOTE | 2018-04-21 08:39 | XR ---
EXAMINATION TYPE: XR chest 1V portable DATE OF EXAM: 04/21/2018 COMPARISON: 04/20/2018 HISTORY: Shortness of breath, fluid overload TECHNIQUE: Single frontal view of the chest is obtained. FINDINGS: Postsurgical changes with bilateral consolidation and pleural effusion are stable. No pneu mothorax. Arthropathy of the shoulders. Atherosclerotic change aorta. IMPRESSION: 1. Bilateral consolidation and pleural effusion. Correlate for underlying pneumonia versus CHF.
--- NOTE | 2018-04-21 09:10 | FL ---
Modified barium swallow. HISTORY: Dysphagia. Modified barium swallow was performed with the department of speech pathology. The patient was prese nted with various consistencies of barium. There is no evidence for aspiration. Transient penetration noted with thin and honey thick barium. Va llecular residuals noted. Full report is to follow from the department of speech pathology. Impression: Transient penetration without evidence for aspiration.
[2018-04-21] MEDS: MEMANTINE 10 MG TAB PO SCH ×2 (09:35→19:32)
[2018-04-21] MEDS: METOPROLOL SUCCINATE (ER) 25 MG TAB.ER.24H PO SCH (09:35)
[2018-04-21] MEDS: amLODIPine 2.5 MG TAB PO SCH (09:35)
[2018-04-21] MEDS: HEPARIN SODIUM,PORCINE 5,000 UNIT/ML 1 ML VIAL SQ SCH ×2 (09:35→16:27)
[2018-04-21] MEDS: SODIUM CHLORIDE 0.9% 1,000 ML IV SCH ×4 (09:35→16:28)
[2018-04-21] MEDS: FAMOTIDINE 20 MG TAB PO SCH ×2 (09:35→19:32)
[2018-04-21] MEDS: NYSTATIN 100,000 UNIT/GM POWD 15 GM TOPICAL SCH ×3 (09:40→22:18)
[2018-04-21 11:59] LABS: Glucose,Whole Blood 140 mg/dL (75-99)
--- NOTE | 2018-04-21 13:14 | ECHOF ---
Referral Reason:Pulmonary edema MEASUREMENTS -------- HEIGHT: 180.3 cm WEIGHT: 74.8 kg BP: IVSd: 0.9 cm (0.6 - 1.1) LVIDd: 2.5 cm (3.9 - 5.3) LVPWd: 1.1 cm (0.6 - 1.1) IVSs: 1.4 cm LVIDs: 1.7 cm LVPWs: 1.5 cm LAESV Index (A-L): 40.46 ml/m Ao Diam: 3.6 cm (2.0 - 3.7) AV Cusp: 2.2 cm (1.5 - 2.6) LA Diam: 4.9 cm (2.7 - 3.8) MV EXCURSION: 15.271 mm (> 18.000) MV EF SLOPE: 60 mm/s (70 - 150) EPSS: 1.2 cm MV E Pro: 0.92 m/s MV DecT: 261 ms MV A Pro: 0.86 m/s MV E/A Ratio: 1.07 AR PHT: 238 ms RAP: 5.00 mmHg RVSP: 29.77 mmHg FINDINGS -------- Undetermined rhythm. This was a technically good study. The left ventricular size is normal. Left ventricular wall thickness is normal. Overall left vent ricular systolic function is normal with, an EF between 55 - 60 %. The right ventricle is normal in size and function. LA is severely dilated >40 ml/m2 The right atrium is normal in size. Aortic valve is trileaflet and is mildly thickened. Trace amount of aortic regurgitation. The mitral valve leaflets are mildly thickened. Mild mitral annular calcification present. Modera te mitral regurgitation is present. Mild tricuspid regurgitation present. The right ventricular systolic pressure, as measured by Doppl er, is 29.77mmHg. Trace/mild (physiologic) pulmonic regurgitation. The aortic root size is normal. There is a trivial pericardial effusion present. Large Pleural Effusion. CONCLUSIONS -------- 1. Undetermined rhythm. 2. This was a technically good study. 3. The left ventricular size is normal. 4. Left ventricular wall thickness is normal. 5. Overall left ventricular systolic function is normal with, an EF between 55 - 60 %. 6. The right ventricle is normal in size and function. 7. LA is severely dilated >40 ml/m2 8. The right atrium is normal in size. 9. Aortic valve is trileaflet and is mildly thickened. 10. Trace amount of aortic regurgitation. 11. The mitral valve leaflets are mildly thickened. 12. Mild mitral annular calcification present. 13. Moderate mitral regurgitation is present. 14. Mild tricuspid regurgitation present. 15. The right ventricular systolic pressure, as measured by Doppler, is 29.77mmHg. 16. Trace/mild (physiologic) pulmonic regurgitation. 17. The aortic root size is normal. 18. There is a trivial pericardial effusion present. 19. Large Pleural Effusion. MIXING OPERATOR: Kena Frausto RDCS
--- NOTE | 2018-04-21 13:22 | P.PN ---
Subjective Progress Note Date: 04/21/18 83 yo M with PMH of CAD s/p CABG, Afib, HTN, HLD, and dementia presented to the ED after being found by family members in his house on the ground and confused. He was last seen 24 hours ago by a family member. As per the daughter, the patient ambulated with a cane and though previously highly functional, had recently declined with episodes of confusion, urinary incontinence, and falls. In the ED, his CK was 3000+, with elevated lactate and troponin. Furthermore, she endorsed a recent history of gradually worsening LE and abdominal swelling. The patient was started on IV fluids for rhabdomyolysis with subsequent improvement in his mentation and CK levels. The patient was seen and examined with daughter at the bedside. The patient appeared a lot more alert today and was answering questions appropriately, though continues to be confused. She was pleasant and denied any active complaints, though could not contribute much to the events preceding the current hospitalization. He otherwise denied fever, chills, chest pain, shortness of breath, nausea, vomiting, abdominal pain, diarrhea, or constipation. Objective - Vital Signs Vital signs: Vital Signs Temp 97.8 F 04/21/18 09:33 Pulse 78 04/21/18 09:33 Resp 18 04/21/18 09:33 BP 137/65 04/21/18 09:33 Pulse Ox 97 04/21/18 09:33 Intake & Output 04/20/18 04/21/18 04/21/18 18:59 06:59 18:59 Intake Total 1475 Output Total 500 Balance -500 1475 Weight 75 kg Intake: IV 1275 Sodium Chloride 0.9% 1, 1275 000 ml @ 75 mls/hr IV . [id number] [facility] Rx#:[id number] Oral 200 Output: Urine 500 Other: Voiding Method Indwelling Catheter Indwelling Catheter - Exam General: Non-toxic, in no acute distress HEENT: NC/AT, anicteric sclerae, moist conjunctiva, no lid-lag, PERRLA, oropharynx dry, no erythema, exudates Cardiovascular: S1/S2 wnl, irregularly irregular Lungs: Clear to auscultation, normal respiratory effort, no accessory muscle use Abdominal: Mildly distended, no fluid thrill appreciated, non-tender, without guarding or rebound Skin: Warm, dry Extremities: 1+ LE edema, no contractures Psychiatric: Oriented only to person and place, pleasant, conversant Neuro: Moving all extremities, no focal deficits noted - Labs CBC & Chem 7: 04/21/18 05:44 04/21/18 05:44 Labs: Abnormal Lab Results - Last 24 Hours (Table) 04/20/18 04/20/18 04/20/18 Range/Units 11:31 13:34 17:55 RBC (4.30-5.90) m/uL Hgb (13.0-17.5) gm/dL Hct (39.0-53.0) % MCV (80.0-100.0) fL Plt Count (150-450) k/uL Chloride (98-107) mmol/L BUN (9-20) mg/dL Glucose (74-99) mg/dL POC Glucose (mg/dL) 142 H 132 H (75-99) mg/dL Plasma Lactic Acid Fernando 2.6 H* (0.7-2.0) mmol/L Calcium (8.4-10.2) mg/dL Total Bilirubin (0.2-1.3) mg/dL AST (17-59) U/L Creatine Kinase (55-170) U/L Troponin I (0.000-0.034) ng/mL Total Protein (6.3-8.2) g/dL Albumin (3.5-5.0) g/dL 04/20/18 04/20/18 04/21/18 Range/Units 20:08 21:04 01:47 RBC (4.30-5.90) m/uL Hgb (13.0-17.5) gm/dL Hct (39.0-53.0) % MCV (80.0-100.0) fL Plt Count (150-450) k/uL Chloride (98-107) mmol/L BUN (9-20) mg/dL Glucose (74-99) mg/dL POC Glucose (mg/dL) 115 H (75-99) mg/dL Plasma Lactic Acid Fernando (0.7-2.0) mmol/L Calcium (8.4-10.2) mg/dL Total Bilirubin (0.2-1.3) mg/dL AST (17-59) U/L Creatine Kinase (55-170) U/L Troponin I 0.161 H* 0.154 H* (0.000-0.034) ng/mL Total Protein (6.3-8.2) g/dL Albumin (3.5-5.0) g/dL 04/21/18 04/21/18 04/21/18 Range/Units 05:44 05:44 06:00 RBC 2.87 L (4.30-5.90) m/uL Hgb 9.9 L (13.0-17.5) gm/dL Hct 29.9 L (39.0-53.0) % MCV 104.4 H (80.0-100.0) fL Plt Count 60 L (150-450) k/uL Chloride 113 H (98-107) mmol/L BUN 32 H (9-20) mg/dL Glucose 109 H (74-99) mg/dL POC Glucose (mg/dL) 138 H (75-99) mg/dL Plasma Lactic Acid Fernando (0.7-2.0) mmol/L Calcium 8.0 L (8.4-10.2) mg/dL Total Bilirubin 1.4 H (0.2-1.3) mg/dL AST 148 H (17-59) U/L Creatine Kinase 1186 H* (55-170) U/L Troponin I (0.000-0.034) ng/mL Total Protein 4.9 L (6.3-8.2) g/dL Albumin 2.3 L (3.5-5.0) g/dL Assessment and Plan Plan: Rhabdomyolysis, likely secondary to dehydration versus fall and prolonged period on ground -Continue with gentle hydration and monitor for signs of fluid overload -CXR reviewed -Continue to follow CK levels, improved -Continue to hold statin for now Altered mental status, likely metabolic encephalopathy secondary to rhabdomyolysis and acidosis -Significantly improved, will continue to monitor - Check RPR and B12 levels Deranged LFTs, ascites, hyperbilirubinemia and elevated AST -Will obtain hepatitis panel -Abdominal ultrasound suspicious for cirrhosis -Will discuss with family and patient regarding history of alcohol use -Will check Echocardiogram Elevated troponins -Possibly secondary to dehydration versus demand ischemia -Downtrending -Telemetry monitoring DM Type 2 -Will hold oral hypoglycemic agents -Monitor lactate level -Continue with insulin sliding scale HTN, controlled -C/w Norvasc 2.5 mg qd, Toprol 25 mg qd CAD s/p CABG - Will get Echo Afib - Unsure why patient isn't on AC - Will consider prior to DC Macrocytic anemia and thrombocytopenia -Will check B12 and Folate levels DVT//GI prophyl - Heparin subq - Pepcid Leukocytosis, resolved
[2018-04-21 13:24] VITALS: BMI 22.4
[2018-04-21 16:40] LABS: Glucose,Whole Blood 209 mg/dL (75-99)
[2018-04-21 20:20] LABS: Folate, Serum 4.3 ng/mL
[2018-04-21 20:38] LABS: Hepatitis B Surface AB- Quant 3.5 mIU/mL; Hepatitis C IgG Antibody Non-Reactive (Non-Reactive)
[2018-04-22 05:46] LABS: Glucose,Whole Blood 138 mg/dL (75-99)
[2018-04-22 06:14] LABS: HCT 29.8 % (39.0-53.0); HGB 9.7 gm/dL (13.0-17.5); MCH 33.7 pg (25.0-35.0); MCHC 32.6 g/dL (31.0-37.0); MCV 103.5 fL (80.0-100.0); Macrocytosis Slight; Mean Platelet Volume 8.6; RBC 2.88 m/uL (4.30-5.90); RDW 14.1 % (11.5-15.5); WBC 8.7 k/uL (3.8-10.6)
[2018-04-22 06:21] LABS: Platelet Count 66 k/uL (150-450)
[2018-04-22] MEDS: INSULIN ASPART 100 UNIT/ML 1 ML 10 ML VIAL SQ SCH ×4 (06:25→21:15)
[2018-04-22 06:29] LABS: ALT 54 U/L (21-72); AST 102 U/L (17-59); Albumin 2.1 g/dL (3.5-5.0); Alkaline Phosphatase 70 U/L (38-126); Anion Gap 1 mmol/L; Blood Urea Nitrogen 26 mg/dL (9-20); Calcium 7.8 mg/dL (8.4-10.2); Carbon Dioxide 23 mmol/L (22-30); Chloride 118 mmol/L (98-107); Creatine Kinase 467 U/L (55-170); Glucose 120 mg/dL (74-99); Potassium 3.9 mmol/L (3.5-5.1); Sodium 142 mmol/L (137-145); Total Bilirubin 1.3 mg/dL (0.2-1.3); Total Protein 4.8 g/dL (6.3-8.2)
[2018-04-22] MEDS: HEPARIN SODIUM,PORCINE 5,000 UNIT/ML 1 ML VIAL SQ SCH ×3 (07:54→16:35)
[2018-04-22] MEDS: amLODIPine 2.5 MG TAB PO SCH (07:54)
[2018-04-22] MEDS: FAMOTIDINE 20 MG TAB PO SCH ×2 (07:54→19:38)
[2018-04-22] MEDS: MEMANTINE 10 MG TAB PO SCH ×2 (07:54→19:38)
[2018-04-22] MEDS: METOPROLOL SUCCINATE (ER) 25 MG TAB.ER.24H PO SCH (07:54)
[2018-04-22] MEDS: NYSTATIN 100,000 UNIT/GM POWD 15 GM TOPICAL SCH ×3 (08:01→21:21)
--- NOTE | 2018-04-22 08:45 | XR ---
EXAMINATION TYPE: XR chest 1V portable DATE OF EXAM: 04/22/2018 COMPARISON: Prior chest x-ray 04/21/2018 HISTORY: Abnormal chest x-ray TECHNIQUE: Single frontal view of the chest is obtained. FINDINGS: Findings are similar to prior. Lung volumes are low and the patient is rotated, post media n sternotomy, there are overlying cardiac leads. No evident pneumothorax. Heart is obscured. Airspace disease suspected at the right lung base. IMPRESSION: Suspect some improvement in patient's volume status. Exam is limited technically. Follow -up PA and lateral chest x-ray recommended. Correlate for possible pneumonia versus edema.
[2018-04-22 11:37] LABS: Glucose,Whole Blood 134 mg/dL (75-99)
[2018-04-22] MEDS: SODIUM CHLORIDE 0.9% 1,000 ML IV SCH ×2 (11:47→21:21)
--- NOTE | 2018-04-22 13:11 | P.CONS ---
History of Present Illness - Reason for Consult Consult date: 04/22/18 cirrhosis Requesting physician: Maxi Thompson - Chief Complaint weakness falls abdominal bloatedness - History of Present Illness 83-year-old male with a history of atrial fibrillation, dementia diabetes mellitus, hyperlipidemia, hypertension, obesity, CAD/CABG admitted with multiple constitutional symptoms such as intermittent confusion weakness incontinence, nonbloody diarrhea abdominal bloatedness lower leg edema and recent falls. History obtained from daughter as patient is unable to provide details. Consult requested for cirrhosis. Ultrasound abdomen liver length 9.8 cm. Nodular contour. Ascites in all 4 quadrants. CBD/CHD obscured by overlying bowel gas. Hepatitis screen nonreactive. White count initially 17.7 presently 8.7. Hemoglobin 12.2 presently 9.7. Platelet 104 presently 66. MCV 103.6. INR 1.7. Total creatinine kinase 5245. Troponin 0.166. Lipase 14. Total bilirubin 2.7. AST 2:15. ALT 59. AP 77. BUN 31. Creatinine 0.7. Presently total bilirubin 1.3. AST 102. ALT 54. AP 70. Folate 4.3. Vitamin B12 965. Creatinine kinase 467. BUN 2016 creatinine 0.7. According to the daughter no history of alcohol abuse or hepatitis. He has had lifelong issues with diabetes hypertension hyperal cholesterolemia and obesity. Lately she's noticed slight more confusion more so than his baseline with history of dementia as well as difficulty walking falls. Over the last month he was telling his daughter was more difficult to button his pants. He was found on the floor at home prior to admission. Denies hematemesis hematochezia melena fever or chills. Review of Systems Daughter assisted with ROS. Constitutional: Denies fever, chills, sweats, slight weight gain from edema, or loss. History of dementia. HEENT: Negative for migraines, blurred vision or loss, earaches, drainage, tinnitus, oral mucosal lesions, dysphagia, or odynophagia. Cardiac: Negative for chest pain, arrhythmias, or palpitation. Respiratory: Negative for shortness of breath, hemoptysis, cough, or sputum production. Gastrointestinal: See HPI for pertinent findings. Genitourinary: Negative for hematuria, urgency, frequency, polyuria, dysuria, or penile discharge. Musculoskeletal: Negative for muscle aches, swelling, arthritis, and arthralgias. Neurologic: Negative for stroke or TIA. Endocrine: Negative for thyroid problems. Skin: Negative for rash or itching. Psychiatric: Negative history for depression and anxiety Past Medical History Past Medical History: Atrial Fibrillation, Diabetes Mellitus, Eye Disorder, Hyperlipidemia, Hypertension Additional Past Medical History / Comment(s): Past medical record indicates Afib but to unaware, past few weeks lower leg edema and last week abdomin getting larger (10 pound weight gain) and decreased appetite/diarrhea then constipation past 5 days, bilateral legs/feet painful to ambulate since swelling , bone marrow suppression, NIDDM type II, DDD, abdominal aortic aneurysm, macular degeneration bilaterally, occasional confusion, falls lately. 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 Past Anesthesia/Blood Transfusion Reactions: No Reported Reaction Smoking Status: Never smoker - Past Family History Father Family Medical History: Vascular Disorder Additional Family Medical History / Comment(s): Father from a ruptured aortic aneurysm. Mother Family Medical History: Dementia, Diabetes Mellitus Additional Family Medical History / Comment(s): Mother lived to be 100yrs old. Son(s) Family Medical History: Vascular Disorder Additional Family Medical History / Comment(s): Son from a ruptured aortic aneurysm. Family Additional Family Medical History / Comment(s): Unable to obtain family history at this time due to patient confusion and not available family members Medications and Allergies Home Medications Medication Instructions Recorded Confirmed Type Memantine [Namenda] 10 mg PO BID 04/20/18 04/20/18 History Metoprolol Succinate [Toprol Xl] 25 mg PO DAILY 04/20/18 04/20/18 History Simvastatin [Zocor] 20 mg PO HS 04/20/18 04/20/18 History amLODIPine [Norvasc] 2.5 mg PO DAILY 04/20/18 04/20/18 History metFORMIN HCL ER [Glucophage Xr] 500 mg PO PC-SUPPER 04/20/18 04/20/18 History Allergies Allergy/AdvReac Type Severity Reaction Status Date / Time No Known Allergies Allergy Verified 04/20/18 09:01 Physical Exam Vitals: Vital Signs Temp Pulse Resp BP Pulse Ox 04/22/18 12:00 98.0 F 94 24 108/68 95 04/22/18 08:00 98.0 F 84 24 109/62 94 L 04/22/18 03:27 78 20 128/60 95 04/22/18 00:00 76 20 113/64 93 L 04/21/18 20:00 97 F L 82 20 131/78 91 L 04/21/18 15:21 82 20 04/21/18 15:18 97.8 F 82 20 123/62 93 L Intake and Output 04/21/18 04/22/18 04/22/18 22:59 06:59 14:59 Intake Total 729 625 Output Total 75 150 150 Balance 654 -150 475 Intake: IV 375 625 Sodium Chloride 0.9% 1, 375 625 000 ml @ 125 mls/hr IV . Q8H [facility] Rx#:[id number] Oral 354 Output: Urine 75 150 150 Other: Voiding Method Indwelling Catheter Indwelling Catheter Indwelling Catheter Weight 78 kg General appearance: The patient is alert, to self time and place. No acute distress. HET: Head is normocephalic and atraumatic. Pupils are equal and reactive. Oropharynx is clear without lesions. Neck: Supple without lymphadenopathy. Trachea midline. Heart: S1 S2. Regular rate and rhythm. Lungs: No crackles or wheezes are heard. Abdomen: Soft, nontender slightly distended with mild ascites, bowel sounds present. No peritoneal signs. No palpable organomegaly or masses. Extremities: Poor skin turgor was scattered bruising. +2 bilateral lower extremity edema. Normal skin color and turgor. No cyanosis, rash, ulceration, clubbing, or edema. Radial and pedal pulses are 2/4 bilaterally. Neurological: No focal deficits. Strength and sensation are grossly intact. Results CBC & Chem 7: 04/22/18 05:43 04/22/18 05:43 Labs: Abnormal Lab Results - Last 24 Hours (Table) 04/21/18 04/21/18 04/21/18 Range/Units 05:44 05:44 16:38 RBC (4.30-5.90) m/uL Hgb (13.0-17.5) gm/dL Hct (39.0-53.0) % MCV (80.0-100.0) fL Plt Count (150-450) k/uL Chloride (98-107) mmol/L BUN (9-20) mg/dL Glucose (74-99) mg/dL POC Glucose (mg/dL) 209 H (75-99) mg/dL Calcium (8.4-10.2) mg/dL AST (17-59) U/L Creatine Kinase (55-170) U/L Total Protein (6.3-8.2) g/dL Albumin (3.5-5.0) g/dL Vitamin B12 965.0 H (200.0-944.0) pg/mL Vitamin D 25-Hydroxy 19.8 L (30.0-100.0) ng/mL 04/22/18 04/22/18 04/22/18 Range/Units 05:43 05:43 05:45 RBC 2.88 L (4.30-5.90) m/uL Hgb 9.7 L (13.0-17.5) gm/dL Hct 29.8 L (39.0-53.0) % MCV 103.5 H (80.0-100.0) fL Plt Count 66 L (150-450) k/uL Chloride 118 H (98-107) mmol/L BUN 26 H (9-20) mg/dL Glucose 120 H (74-99) mg/dL POC Glucose (mg/dL) 138 H (75-99) mg/dL Calcium 7.8 L (8.4-10.2) mg/dL AST 102 H (17-59) U/L Creatine Kinase 467 H (55-170) U/L Total Protein 4.8 L (6.3-8.2) g/dL Albumin 2.1 L (3.5-5.0) g/dL Vitamin B12 (200.0-944.0) pg/mL Vitamin D 25-Hydroxy (30.0-100.0) ng/mL 04/22/18 Range/Units 11:35 RBC (4.30-5.90) m/uL Hgb (13.0-17.5) gm/dL Hct (39.0-53.0) % MCV (80.0-100.0) fL Plt Count (150-450) k/uL Chloride (98-107) mmol/L BUN (9-20) mg/dL Glucose (74-99) mg/dL POC Glucose (mg/dL) 134 H (75-99) mg/dL Calcium (8.4-10.2) mg/dL AST (17-59) U/L Creatine Kinase (55-170) U/L Total Protein (6.3-8.2) g/dL Albumin (3.5-5.0) g/dL Vitamin B12 (200.0-944.0) pg/mL Vitamin D 25-Hydroxy (30.0-100.0) ng/mL US - abdomen: report reviewed (Dr. Francis) Assessment and Plan (1) Cirrhosis of liver Narrative/Plan: 83-year-old male with a history of multiple medical comorbidities including diabetes, hypertension, obesity, hypercholesterinemia with no history of hepatitis or alcoholism with cirrhotic features on ultrasound imaging as well as ascites underlying coagulopathy and thrombocytopenia suggestive of cirrhosis of the liver etiology unclear possible cryptogenic. Underlying chronic liver disease cannot be excluded. Current Visit: Yes Status: Acute Code(s): K74.60 - UNSPECIFIED CIRRHOSIS OF LIVER SNOMED Code(s): 73608067 (2) Ascites Current Visit: Yes Status: Acute Code(s): R18.8 - OTHER ASCITES SNOMED Code(s): 392725252 (3) Coagulopathy Current Visit: Yes Status: Acute Code(s): D68.9 - COAGULATION DEFECT, UNSPECIFIED SNOMED Code(s): 90500817 (4) Thrombocytopenia Current Visit: Yes Status: Acute Code(s): D69.6 - THROMBOCYTOPENIA, UNSPECIFIED SNOMED Code(s): 333269209 (5) Dementia Current Visit: Yes Status: Acute Code(s): F03.90 - UNSPECIFIED DEMENTIA WITHOUT BEHAVIORAL DISTURBANCE SNOMED Code(s): 33102917 (6) Diabetes mellitus Current Visit: Yes Status: Acute Code(s): E11.9 - TYPE 2 DIABETES MELLITUS WITHOUT COMPLICATIONS SNOMED Code(s): 82321463 (7) Atrial fibrillation Current Visit: Yes Status: Acute Code(s): I48.91 - UNSPECIFIED ATRIAL FIBRILLATION SNOMED Code(s): 93455066 (8) H/O: obesity Current Visit: Yes Status: Acute Code(s): Z86.39 - PERSONAL HISTORY OF ENDO , NUTRITIONAL AND METABOLIC DISEASE SNOMED Code(s): 286960035 (9) Hypercholesterolemia Current Visit: Yes Status: Acute Code(s): E78.00 - PURE HYPERCHOLESTEROLEMIA , UNSPECIFIED SNOMED Code(s): 62503563 (10) Hypertension Current Visit: Yes Status: Acute Code(s): I10 - ESSENTIAL (PRIMARY) HYPERTENSION SNOMED Code(s): 16390485 Plan: 1. Serologic workup for chronic liver disease requested. Check ammonia level. PT/INR am. Low dose diuretics discussed but will require electrolyte renal function monitoring in the outpatient setting. Daughter states she is planning on taking him to a rehab facility in the [facility]. Paracentesis if ascites worsens. Continue supportive measures. Will follow closely with you. Thank you for this kind referral and the opportunity to participate in the care of your patient. This consultation was discussed with Dr. rFancis. The impression and plan of care have been directed as dictated.
--- NOTE | 2018-04-22 13:46 | P.PN ---
Subjective Progress Note Date: 04/22/18 Patient was seen and examined at bedside. The patient noted to have slightly improved mentation from yesterday and was able to answer questions, although continues to only be oriented to person and place. He was pleasant and denied any active complaints. Discussed with daughter at the bedside and updated her on the situation. Objective - Vital Signs Vital signs: Vital Signs Temp 98.0 F 04/22/18 12:00 Pulse 94 04/22/18 12:00 Resp 24 04/22/18 12:00 BP 108/68 04/22/18 12:00 Pulse Ox 95 04/22/18 12:00 Intake & Output 04/21/18 04/22/18 04/22/18 18:59 06:59 18:59 Intake Total 2657 625 Output Total 275 150 150 Balance 2382 -150 475 Weight 75 kg 78 kg Intake: IV 1925 625 Sodium Chloride 0.9% 1, 1925 625 000 ml @ 125 mls/hr IV . Q8H [facility] Rx#:[id number] Oral 732 Output: Urine 275 150 150 Other: Voiding Method Indwelling Catheter Indwelling Catheter Indwelling Catheter - Exam General: Elderly M, non-toxic, in no acute distress HEENT: NC/AT, anicteric sclerae, moist conjunctiva, no lid-lag, PERRLA, oropharynx improved, more moist today, no erythema, exudates Cardiovascular: S1/S2 wnl, irregularly irregular, no murmurs appreciated Lungs: Clear to auscultation, normal respiratory effort, no accessory muscle use Abdominal: Mildly distended, no fluid thrill appreciated, non-tender, without guarding or rebound Skin: Warm, dry Extremities: 1+ LE edema, no contractures Psychiatric: Oriented only to person and place, pleasant, conversant Neuro: Moving all extremities, no focal deficits noted - Labs CBC & Chem 7: 04/22/18 05:43 04/22/18 05:43 Labs: Abnormal Lab Results - Last 24 Hours (Table) 04/21/18 04/21/18 04/21/18 Range/Units 05:44 05:44 16:38 RBC (4.30-5.90) m/uL Hgb (13.0-17.5) gm/dL Hct (39.0-53.0) % MCV (80.0-100.0) fL Plt Count (150-450) k/uL Chloride (98-107) mmol/L BUN (9-20) mg/dL Glucose (74-99) mg/dL POC Glucose (mg/dL) 209 H (75-99) mg/dL Calcium (8.4-10.2) mg/dL AST (17-59) U/L Creatine Kinase (55-170) U/L Total Protein (6.3-8.2) g/dL Albumin (3.5-5.0) g/dL Vitamin B12 965.0 H (200.0-944.0) pg/mL Vitamin D 25-Hydroxy 19.8 L (30.0-100.0) ng/mL 04/22/18 04/22/18 04/22/18 Range/Units 05:43 05:43 05:45 RBC 2.88 L (4.30-5.90) m/uL Hgb 9.7 L (13.0-17.5) gm/dL Hct 29.8 L (39.0-53.0) % MCV 103.5 H (80.0-100.0) fL Plt Count 66 L (150-450) k/uL Chloride 118 H (98-107) mmol/L BUN 26 H (9-20) mg/dL Glucose 120 H (74-99) mg/dL POC Glucose (mg/dL) 138 H (75-99) mg/dL Calcium 7.8 L (8.4-10.2) mg/dL AST 102 H (17-59) U/L Creatine Kinase 467 H (55-170) U/L Total Protein 4.8 L (6.3-8.2) g/dL Albumin 2.1 L (3.5-5.0) g/dL Vitamin B12 (200.0-944.0) pg/mL Vitamin D 25-Hydroxy (30.0-100.0) ng/mL 04/22/18 Range/Units 11:35 RBC (4.30-5.90) m/uL Hgb (13.0-17.5) gm/dL Hct (39.0-53.0) % MCV (80.0-100.0) fL Plt Count (150-450) k/uL Chloride (98-107) mmol/L BUN (9-20) mg/dL Glucose (74-99) mg/dL POC Glucose (mg/dL) 134 H (75-99) mg/dL Calcium (8.4-10.2) mg/dL AST (17-59) U/L Creatine Kinase (55-170) U/L Total Protein (6.3-8.2) g/dL Albumin (3.5-5.0) g/dL Vitamin B12 (200.0-944.0) pg/mL Vitamin D 25-Hydroxy (30.0-100.0) ng/mL Assessment and Plan Plan: Rhabdomyolysis, likely secondary to dehydration versus fall and prolonged period on ground, resolved -Continue with gentle hydration and monitor for signs of fluid overload -CXR reviewed -CK levels significantly improved -Continue to hold statin for now Altered mental status, likely metabolic encephalopathy secondary to rhabdomyolysis and acidosis, w/ unsteady gate -Improved, will continue to monitor -RPR neg, B12 wnl -Will check Ammonia level in am Deranged LFTs, ascites, hyperbilirubinemia and elevated AST -Hepatitis panel thus far negative. GI consulted -Abdominal ultrasound suspicious for cirrhosis -Family notes patient has no history of alcohol abuse -Echocardiogram reviewed: EF 55-60% Elevated troponins -Possibly secondary to dehydration versus demand ischemia -Downtrending -Telemetry monitoring Impaired swallowing -Aspiration precautions -Speech and swallow will evaluate patient tomorrow -NPO for now. Will hold oral medications. DM Type 2 -Continue with insulin sliding scale -A1c 5.3 HTN, controlled -C/w Norvasc 2.5 mg qd, Toprol 25 mg qd CAD s/p CABG -Echo reviewed, LVEF 55-60% Afib - Unsure why patient isn't on AC - Will consider prior to DC Macrocytic anemia and thrombocytopenia -B12 and folate within normal limits -We'll monitor for now DVT//GI prophyl - Heparin subq - Pepcid Leukocytosis, resolved
[2018-04-22 16:30] LABS: Glucose,Whole Blood 134 mg/dL (75-99)
--- NOTE | 2018-04-22 17:32 | XR ---
EXAMINATION TYPE: XR chest 1V portable DATE OF EXAM: 04/22/2018 COMPARISON: Today HISTORY: Short of breath TECHNIQUE: Single frontal view of the chest is obtained. FINDINGS: There is poor inspiration with elevated diaphragms. There are sternal wires. There is no g ross heart failure. There is evidence of some airspace infiltrate at the right lung base. There are c hest leads. IMPRESSION: Atelectasis at the lung bases. Infiltrate in the right lower lobe. No change compared to exam 10 hours ago.
[2018-04-22] MEDS ORDERED: SODIUM CHLORIDE 0.9% 500 ML IV ONE (18:14)
--- NOTE | 2018-04-22 18:56 | US ---
EXAMINATION TYPE: US venous doppler duplex LE DATE OF EXAM: 04/22/2018 6:44 PM COMPARISON: NONE CLINICAL HISTORY: Unilateral leg swelling. Patient fell and was on floor for 5+ days. Left leg swelli ng noticed by nurse this am and increasingly worse by pm, patient is a bit confused but he states he has had clots before but unsure where he had them. SIDE PERFORMED: Bilateral TECHNIQUE: The lower extremity deep venous system is examined utilizing real time linear array sonog tello with graded compression, doppler sonography and color-flow sonography. VESSELS IMAGED: External Iliac Vein (EIV) Common Femoral Vein Deep Femoral Vein Greater Saphenous Vein * Femoral Vein Popliteal Vein Small Saphenous Vein * Proximal Calf Veins (* superficial vessels) Patient appears to have extensive arterial plaque that made imaging challenging due to shadowing and nonmobile, ridged legs on patient. Right Leg: Appears negative for DVT, unable to fully compress vein at mid popiteal vein, on further assessment there were prominent valves at that level. Left Leg: Internal echoes seen from left dist FV extending up through left CFV, non compressible, no color flow seen, left proximal calf v's and left popiteal vessels appear patent. IMPRESSION: There is evidence of acute and chronic deep venous thrombosis in the left femoral vein. There is no evidence of deep venous thrombosis in the right leg.
[2018-04-22 19:17] LABS: Protein, Total 5.8 g/dL (6.2-8.2)
[2018-04-22 20:01] LABS: Alpha Fetoprotein, Tumor Mkr <2.5 ng/mL (0.0-7.9)
[2018-04-22] MEDS ORDERED: SALINE 1 500ML.BAG with HEPARIN SODIUM,PORCINE/NS/PF 1,000 UNIT IV ONE (20:10)
[2018-04-22] MEDS ORDERED: HEPARIN SODIUM,PORCINE 5,000 UNIT/ML 1 ML VIAL IV PRN (20:53)
[2018-04-22 21:00] LABS: Glucose,Whole Blood 150 mg/dL (75-99)
[2018-04-22] MEDS: HEPARIN SOD,PORK IN 0.45% NACL 25,000 UNIT in 0.45% NACL 1 500ML.BAG IV SCH ×2 (21:13→21:31)
[2018-04-22] MEDS: HEPARIN SODIUM,PORCINE 10,000 UNIT/ML 1 ML VIAL IV ONE ×2 (21:13→21:31)
[2018-04-22] MEDS: MORPHINE SULFATE 2 MG/ML SYRINGE IVP PRN (21:20)
[2018-04-22 21:22] LABS: INR 1.5 (<1.2); Partial Thromboplastin Time 28.5 sec (22.0-30.0); Prothrombin Time 14.2 sec (9.0-12.0)
[2018-04-22 21:43] LABS: Basophils % (A) 0 %; Eosinophils % (A) 0 %; HCT 31.6 % (39.0-53.0); HGB 10.1 gm/dL (13.0-17.5); Lymphocytes # (A) 0.5 k/uL (1.0-4.8); Lymphocytes % (A) 5 %; MCHC 32.1 g/dL (31.0-37.0); Macrocytosis Moderate; Mean Platelet Volume 8.1; Monocytes # (A) 0.5 k/uL (0-1.0); Monocytes % (A) 5 %; Neutrophils # (A) 8.6 k/uL (1.3-7.7); Neutrophils % (A) 89 %; RBC 2.98 m/uL (4.30-5.90); RDW 14.5 % (11.5-15.5); WBC 9.7 k/uL (3.8-10.6)
[2018-04-22 21:57] LABS: Platelet Count 66 k/uL (150-450); Polychromasia Present
--- NOTE | 2018-04-22 23:11 | P.PN ---
Progress Note - Text Progress Note Date: 04/22/18 acute left LE DVT, however, patient has low platelet count and trending down Heparin D/C consult vascular surgery to evaluate for IVC filter vacular surgery notified. 4 Ts score is low probability of HIT Hematology consult
[2018-04-23] MEDS ORDERED: FUROSEMIDE 10 MG/ML 2 ML VIAL IV ONE (05:14)
[2018-04-23] MEDS ORDERED: IPRATROPIUM-ALBUTEROL 3 ML NEB INHALATION PRN (05:36)
[2018-04-23 05:51] LABS: Basophils % (A) 0 %; Eosinophils % (A) 0 %; HCT 35.5 % (39.0-53.0); HGB 11.3 gm/dL (13.0-17.5); Lymphocytes # (A) 0.9 k/uL (1.0-4.8); Lymphocytes % (A) 6 %; MCH 34.1 pg (25.0-35.0); MCHC 31.9 g/dL (31.0-37.0); MCV 106.8 fL (80.0-100.0); Macrocytosis Moderate; Monocytes # (A) 0.7 k/uL (0-1.0); Monocytes % (A) 5 %; Neutrophils # (A) 13.3 k/uL (1.3-7.7); Neutrophils % (A) 88 %; RBC 3.32 m/uL (4.30-5.90); RDW 14.3 % (11.5-15.5); WBC 15.1 k/uL (3.8-10.6)
[2018-04-23 05:58] LABS: Platelet Count 95 k/uL (150-450)
[2018-04-23 06:03] LABS: INR 1.4 (<1.2); Partial Thromboplastin Time 26.1 sec (22.0-30.0); Prothrombin Time 13.2 sec (9.0-12.0)
[2018-04-23 06:09] LABS: Glucose,Whole Blood 126 mg/dL (75-99)
[2018-04-23 06:13] LABS: ALT 63 U/L (21-72); AST 82 U/L (17-59); Albumin 2.5 g/dL (3.5-5.0); Alkaline Phosphatase 85 U/L (38-126); Anion Gap 5 mmol/L; Blood Urea Nitrogen 26 mg/dL (9-20); Carbon Dioxide 20 mmol/L (22-30); Chloride 118 mmol/L (98-107); Glucose 119 mg/dL (74-99); Potassium 3.7 mmol/L (3.5-5.1); Sodium 143 mmol/L (137-145); Total Bilirubin 1.8 mg/dL (0.2-1.3); Total Protein 5.5 g/dL (6.3-8.2)
[2018-04-23] MEDS: INSULIN ASPART 100 UNIT/ML 1 ML 10 ML VIAL SQ SCH ×3 (06:14→17:49)
[2018-04-23] MEDS ORDERED: HEPARIN SODIUM,PORCINE 5,000 UNIT/ML 1 ML VIAL IV PRN (06:51)
[2018-04-23] MEDS: SODIUM CHLORIDE 0.9% 1,000 ML IV SCH ×2 (07:01→17:43)
--- NOTE | 2018-04-23 07:06 | P.PN ---
Progress Note - Text Progress Note Date: 04/23/18 patient oxygen saturation was dropping , patient was given a trial of nebulized inhaler and a dose of lasix due to clinically sounding congested. however, no significant improvement in his oxygenation. patient now is requiring 10 L high flow oxygen. despite that his oxygen sat is only 89-88% on exam , BP 124/72, HR 100-124, patient is alert , looks comfortable, not in any distress, denies any chest pain chest coarse expiratory rhonci A/p suspected PE , patient has left acute DVT heparin was discontinued initially due to low platelet count (60s) which was trending down. however due to worsening oxygenation , and not improving with other measures, and platelet count improved today up to 95, restart heparin drip stat CTA of the chest to rule out PE. signed off to the morning team restart IVF normal saline, as urine looked very concentrated patient continues to be NPO , failed swallow eval.
[2018-04-23] MEDS: HEPARIN SOD,PORK IN 0.45% NACL 25,000 UNIT in 0.45% NACL 1 500ML.BAG IV SCH (07:12)
[2018-04-23] MEDS ORDERED: PIPERACILLIN-TAZOBACTAM 3.375 GM in DEXTROSE/WATER 1 50ML.BAG IVPB STA (07:41)
[2018-04-23] MEDS ORDERED: VANCOMYCIN 1,000 MG in SODIUM CHLORIDE 0.9% 250 ML IVPB STA (07:41)
--- NOTE | 2018-04-23 07:57 | XR ---
EXAMINATION TYPE: XR chest 1V portable DATE OF EXAM: 04/23/2018 HISTORY: Difficulty breathing. REFERENCE: Previous study dated 04/22/2018. FINDINGS: There has been a midline sternotomy. There is worsening opacity to both lungs. This likely represents edema. There are small, bilateral ef fusions. IMPRESSION: 1. WORSENING BIBASILAR LATERAL AIRSPACE DISEASE. 2. SMALL, BILATERAL EFFUSIONS. 3. PLEASE CORRELATE FOR CONGESTIVE HEART FAILURE.
[2018-04-23] MEDS ORDERED: IPRATROPIUM-ALBUTEROL 3 ML NEB INHALATION SCH (08:00)
[2018-04-23] MEDS ORDERED: FUROSEMIDE 10 MG/ML 4 ML VIAL ONE (08:05)
[2018-04-23 08:15] LABS: Glucose,Whole Blood 118 mg/dL (75-99)
--- NOTE | 2018-04-23 08:38 | P.PN ---
Progress Note - Text Progress Note Date: 04/23/18 Overnight, the patient was noted to have worsening respiratory status w/ tachypnea and hypoxia. The LE duplex study was positive for acute DVT of LLE, in light of which Heparin infusion was initiated. Patient was seen and examined at the bedside. Noted to be using accessory muscles of breathing, though alert and answering questions. PERRL, oropharynx moist, abdomen mildly distended, w/ LE edema rick L>R. Lungs w/ rales rick and coarse breath sounds rick. S1/S2 audible , w/ irregularly irregular rate. CXR revealed pleural effusions and rick infiltrates, suspicious for pulmonary edema. The patient was given Lasix 40 mg IVP x 2 and was placed on high flow oxygen and subsequently switched to BiPAP. Furthermore, he was started on Vancomycin and Zosyn and was transferred to ICU. Discussed with daughter (ADONIS) at the bedside. She further endorsed the patient's wishes to not be intubated or have CPR performed in the case of a cardiac arrest.
[2018-04-23] MEDS: MEMANTINE 10 MG TAB PO SCH ×2 (08:52→20:52)
[2018-04-23] MEDS: FAMOTIDINE 20 MG TAB PO SCH (08:52)
[2018-04-23] MEDS: amLODIPine 2.5 MG TAB PO SCH (08:52)
[2018-04-23] MEDS: METOPROLOL SUCCINATE (ER) 25 MG TAB.ER.24H PO SCH (09:02)
[2018-04-23] MEDS ORDERED: NOREPINEPHRINE 4 MG in SODIUM CHLORIDE 0.9% 250 ML IV SCH (09:30)
[2018-04-23] MEDS: FAMOTIDINE 20 MG/2 ML VIAL IV SCH ×2 (10:25→21:06)
--- NOTE | 2018-04-23 11:38 | CONS ---
CONSULTATION This is an 83-year-old gentleman who was seen in the intensive care unit. The patient has been admitted with multiple medical problems. Patient has a history of atrial fibrillation, history of dementia, history of diabetes mellitus, history of hypertension, history of bone marrow suppression with history of abdominal aortic aneurysm and abdominal mass. I was consulted for possible evaluation for placement of the vena cava filter. The patient has developed DVT of the left common femoral vein and the patient was on heparin. His platelets were dropped yesterday and today his platelet count is a 95,000. PHYSICAL EXAMINATION: On examination, patient was seen in the intensive care unit. The patient has a BiPAP, very short of breath. Brachial radial femoral pulses are present. Patient was evaluated. At this point, there is no evidence of heparin-induced thrombocytopenia and his platelet counts are above 90,000. Hematology is on consult. We will hold for placement of the filter. Will follow with you. MTL / IJN: [id number] /
[2018-04-23 11:44] LABS: Glucose,Whole Blood 107 mg/dL (75-99)
--- NOTE | 2018-04-23 12:17 | PN ---
PROGRESS NOTE Patient is an 83-year-old pleasant white male admitted to the hospital and was transferred to the intensive care unit this morning because of hypotension and shortness of breath. The patient was admitted to the hospital with altered mental status, abdominal distention and lower extremity swelling with mild confusion. He had ultrasound of the abdomen at the time of admission to the hospital and was diagnosed with nodular liver consistent with cirrhosis and new onset ascites. He was seen in consultation by our service yesterday. In the meantime, he is presently in the ICU on a non-rebreather doing better. He was given Lasix twice for possible fluid overload. He was also diagnosed with DVT and possible PE and presently on IV heparin. He denies any abdominal pain. No nausea, vomiting. PHYSICAL EXAMINATION: On physical examination, mild respiratory distress. Respiratory rate 33, blood pressure /51, pulse is 126. HEENT EXAMINATION: Unremarkable. Conjunctivae pink. Sclerae anicteric. Oral cavity, no lesions. NECK: No JVD or lymph node enlargement. CHEST: Decreased breath sounds bilaterally. HEART: Regular rate and rhythm. Tachycardia. ABDOMEN: Slightly distended. Bowel sounds are positive. No free fluid appreciated. EXTREMITIES: 2+ pedal edema. SKIN: No rashes. NEURO: He is awake, oriented to name and place. LABS: The following are the labs done from this morning: WBC 15.1, hemoglobin 11.3, platelets are 95,000. PT 13.2, INR 1.4. BUN 26, creatinine 0.67. T bilirubin is 1.8, AST 82, ALT 63. Albumin 2.5. Serologies for hepatitis A, B, and C are negative. IMPRESSION: 1. Acute hypotension/difficulty breathing, presently on 100% non-rebreather, possibly fluid overload. He had received 120 mg of IV Lasix this morning and his respiratory status gradually improving. 2. Nodular liver on imaging studies done during this hospitalization consistent with cirrhosis of the liver with ascites, new onset. This is currently being investigated. The patient has longstanding history of diabetes mellitus. No history of alcohol use in the past. Hepatitis serologies for A, B, and C are are negative. Rest of the workup is pending. 3. Thrombocytopenia probably related to underlying chronic liver disease/cirrhosis of the liver. 4. Altered mental status. Ammonia level was normal. No evidence of hepatic encephalopathy. 5. Mild ascites. Presently on IV Lasix for fluid overload. Ascites is improving. RECOMMENDATIONS: 1. Continue with diuretics. 2. Await rest of the workup for chronic liver disease. 3. Patient was started on broad-spectrum antibiotics for possible infection/SBP. Clinically, he has minimal ascites. Thank you for this consultation. We will follow him closely during his hospital stay. SHANNON / NICOLE: [id number] /
--- NOTE | 2018-04-23 12:39 | P.CNPUL ---
History of Present Illness Consult date: 04/23/18 Requesting physician: Ashu Crawford Reason for consult: other (Acute pulmonary edema) Chief complaint: Confusion, fall at home. History of present illness: This is an 83-year-old white male known history of atrial fibrillation, diabetes , dementia, hypertension, patient lives at home by himself. Apparently recently the patient has been developing intermittent episodes of confusion, and frequent falling. Patient was brought into the hospital on 04/20/2018, mostly because he was found on the ground by his family members, felt may have been on the ground for the last 24 hours prior to being found. Patient was confused upon initial evaluation, and he was complaining of left hip pain. Upon evaluation in the ER, patient was found to have no fractures, CT of the head was unremarkable, however his metabolic profile showed elevated CPK and elevated liver enzymes. Patient was diagnosed with acute rhabdomyolysis, secondary to prolonged period of lying down on the ground. He was also diagnosed as having acute metabolic encephalopathy, patient was admitted, hydrated, however this morning the patient developed pulmonary edema as noted on the chest x-ray. Transferred to the ICU, placed on BiPAP, and I was asked to see him on consultation. Just before I evaluated the patient, patient was given Lasix, and he seems to be responding well to Lasix. Remains on BiPAP, blood pressure is marginal but not requiring any norepinephrine at this point. His BiPAP settings are IPAP of 14 EPAP of 5 and he is on 60% FiO2. Chest x-ray was reviewed and is clearly showed evidence of pulmonary edema. Underlying pneumonia or aspiration pneumonia is not entirely ruled out. There has been a dramatic worsening in the chest x-ray appearance over the last 24 hours. Renal profile was noted to be normal. CBC showed leukocytosis. CPK on admission was over 5000, CPK yesterday was 467. Since admission, the patient had some workup including abdominal ultrasound which showed ascites, swallow evaluation showed transient penetration without evidence of aspiration. 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 Hence the patient was started on heparin. Seen by gastroenterology on consultation for his cirrhosis of the liver and ascites, seen by vascular surgery on consultation, and felt no immediate need for [place] filter placement at this point. Review of Systems ROS unobtainable: due to mental status Past Medical History Past Medical History: Atrial Fibrillation, Diabetes Mellitus, Eye Disorder, Hyperlipidemia, Hypertension Additional Past Medical History / Comment(s): Past medical record indicates Afib but to unaware, past few weeks lower leg edema and last week abdomin getting larger (10 pound weight gain) and decreased appetite/diarrhea then constipation past 5 days, bilateral legs/feet painful to ambulate since swelling , bone marrow suppression, NIDDM type II, DDD, abdominal aortic aneurysm, macular degeneration bilaterally, occasional confusion, falls lately. 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 Past Anesthesia/Blood Transfusion Reactions: No Reported Reaction Smoking Status: Never smoker - Past Family History Father Family Medical History: Vascular Disorder Additional Family Medical History / Comment(s): Father from a ruptured aortic aneurysm. Mother Family Medical History: Dementia, Diabetes Mellitus Additional Family Medical History / Comment(s): Mother lived to be 100yrs old. Son(s) Family Medical History: Vascular Disorder Additional Family Medical History / Comment(s): Son from a ruptured aortic aneurysm. Family Additional Family Medical History / Comment(s): Unable to obtain family history at this time due to patient confusion and not available family members Medications and Allergies Home Medications Medication Instructions Recorded Confirmed Type Memantine [Namenda] 10 mg PO BID 04/20/18 04/20/18 History Metoprolol Succinate [Toprol Xl] 25 mg PO DAILY 04/20/18 04/20/18 History Simvastatin [Zocor] 20 mg PO HS 04/20/18 04/20/18 History amLODIPine [Norvasc] 2.5 mg PO DAILY 04/20/18 04/20/18 History metFORMIN HCL ER [Glucophage Xr] 500 mg PO PC-SUPPER 04/20/18 04/20/18 History Allergies Allergy/AdvReac Type Severity Reaction Status Date / Time No Known Allergies Allergy Verified 04/20/18 09:01 Physical Exam Vitals: Vital Signs Temp Pulse Pulse Resp BP BP Pulse Ox 04/23/18 11:00 109 H 29 H 83/58 95 04/23/18 10:00 106 H 30 H 95/55 95 04/23/18 09:30 103 H 27 H 79/56 94 L 04/23/18 09:00 114 H 30 H 89/56 92 L 04/23/18 08:45 126 H 33 H 72/51 95 04/23/18 08:30 98 30 H 87/52 94 L 04/23/18 08:15 120 H 37 H 102/69 100 04/23/18 08:00 99.2 F 118 H 37 H 108/66 95 04/23/18 07:02 121 H 32 H 118/81 87 L 04/23/18 06:43 102 H 28 H 144/74 90 L 04/23/18 06:13 136 H 36 H 130/81 85 L 04/23/18 05:25 99 F 108 H 32 H 115/62 90 L 04/23/18 04:00 108 H 32 H 04/23/18 03:04 86 18 94/60 90 L 04/22/18 23:36 99 F 73 18 90/64 94 L 04/22/18 20:00 92 24 129/67 92 L 04/22/18 16:00 97.0 F L 96 26 H 128/82 95 Intake and Output 04/22/18 04/23/18 04/23/18 22:59 06:59 14:59 Intake Total 317.5 Output Total 60 700 650 Balance -60 -700 -332.5 Intake: IV 317.5 .9 30 Piperacillin-Tazobactam 3 37.5 .375 gm In Dextrose/Water 1 50ml.bag @ 12.5 mls/hr IVPB ONCE STA Rx#: [id number] Vancomycin 1,000 mg In 250 Sodium Chloride 0.9% 250 ml @ 125 mls/hr IVPB ONCE STA Rx#:[id number] Output: Urine 60 700 650 Other: Voiding Method Indwelling Catheter Indwelling Catheter # Bowel Movements 1 Physical Exam: Revealed an 83-year-old white male, confused, on BiPAP, in moderate respiratory distress during my evaluation. Head: Atraumatic, normocephalic. HEENT:[Neck is supple.] [No neck masses.] [No thyromegaly.] Positive JVD.] PERRLA, EOMI, no icterus. Chest: [Diffuse crackles and rhonchi bilaterally. Using accessory muscles..] Cardiac Exam: [Normal S1 and S2, 2/6 systolic murmur throughout the precordium. No gallop. Abdomen: [Slightly distended, positive mild ascites, no rebound no guarding, no masses palpable. Extremities: [Scattered areas of bruising, 2+ by lateral bipedal edema, normal skin color and turgor. No cyanosis.] Neurological Exam: Confused, otherwise no gross focal neurologic deficit. Lymphatics: No lymphadenopathy. Results - Laboratory Findings CBC and BMP: 04/23/18 05:19 04/23/18 05:19 PT/INR, D-dimer PT 13.2 sec (9.0-12.0) H 04/23/18 05:18 INR 1.4 (<1.2) H 04/23/18 05:18 Abnormal lab findings: Abnormal Labs 04/20/18 04/20/18 04/20/18 01:03 01:06 01:06 WBC 17.7 H RBC 3.57 L Hgb 12.2 L Hct 37.0 L MCV 103.6 H Plt Count 104 L Neutrophils # 16.0 H Lymphocytes # 0.7 L PT INR Chloride Carbon Dioxide BUN Glucose POC Glucose (mg/dL) 138 H Plasma Lactic Acid Fernando Calcium Total Bilirubin AST Creatine Kinase Total Creatine Kinase 5245 H* CK-MB (CK-2) 57.8 H Troponin I 0.166 H* Total Protein Total Protein (PEP) Albumin Lipase Vitamin B12 Vitamin D 25-Hydroxy Urine Protein Urine Ketones Urine Blood Urine Mucus 04/20/18 04/20/18 04/20/18 01:06 01:06 03:08 WBC RBC Hgb Hct MCV Plt Count Neutrophils # Lymphocytes # PT 16.0 H INR 1.7 H Chloride 111 H Carbon Dioxide 16 L BUN 31 H Glucose 146 H POC Glucose (mg/dL) Plasma Lactic Acid Fernando Calcium Total Bilirubin 2.7 H AST 215 H Creatine Kinase Total Creatine Kinase CK-MB (CK-2) Troponin I Total Protein Total Protein (PEP) Albumin 3.3 L Lipase 14 L Vitamin B12 Vitamin D 25-Hydroxy Urine Protein 1+ H Urine Ketones 1+ H Urine Blood Moderate H Urine Mucus Rare H 04/20/18 04/20/18 04/20/18 07:56 07:56 07:56 WBC 14.6 H RBC 3.13 L Hgb 10.8 L Hct 32.3 L MCV 103.2 H Plt Count 85 L Neutrophils # 13.0 H Lymphocytes # 0.7 L PT INR Chloride 113 H Carbon Dioxide 21 L BUN 32 H Glucose 131 H POC Glucose (mg/dL) Plasma Lactic Acid Fernando 3.2 H* Calcium 8.3 L Total Bilirubin 2.0 H AST 184 H Creatine Kinase 3196 H* Total Creatine Kinase CK-MB (CK-2) Troponin I Total Protein 5.4 L Total Protein (PEP) Albumin 2.6 L Lipase Vitamin B12 Vitamin D 25-Hydroxy Urine Protein Urine Ketones Urine Blood Urine Mucus 04/20/18 04/20/18 04/20/18 08:55 11:31 13:34 WBC RBC Hgb Hct MCV Plt Count Neutrophils # Lymphocytes # PT INR Chloride Carbon Dioxide BUN Glucose POC Glucose (mg/dL) 140 H 142 H Plasma Lactic Acid Fernando 2.6 H* Calcium Total Bilirubin AST Creatine Kinase Total Creatine Kinase CK-MB (CK-2) Troponin I Total Protein Total Protein (PEP) Albumin Lipase Vitamin B12 Vitamin D 25-Hydroxy Urine Protein Urine Ketones Urine Blood Urine Mucus 04/20/18 04/20/18 04/20/18 17:55 20:08 21:04 WBC RBC Hgb Hct MCV Plt Count Neutrophils # Lymphocytes # PT INR Chloride Carbon Dioxide BUN Glucose POC Glucose (mg/dL) 132 H 115 H Plasma Lactic Acid Fernando Calcium Total Bilirubin AST Creatine Kinase Total Creatine Kinase CK-MB (CK-2) Troponin I 0.161 H* Total Protein Total Protein (PEP) Albumin Lipase Vitamin B12 Vitamin D 25-Hydroxy Urine Protein Urine Ketones Urine Blood Urine Mucus 04/21/18 04/21/18 04/21/18 01:47 05:44 05:44 WBC RBC 2.87 L Hgb 9.9 L Hct 29.9 L MCV 104.4 H Plt Count 60 L Neutrophils # Lymphocytes # PT INR Chloride 113 H Carbon Dioxide BUN 32 H Glucose 109 H POC Glucose (mg/dL) Plasma Lactic Acid Fernando Calcium 8.0 L Total Bilirubin 1.4 H AST 148 H Creatine Kinase 1186 H* Total Creatine Kinase CK-MB (CK-2) Troponin I 0.154 H* Total Protein 4.9 L Total Protein (PEP) Albumin 2.3 L Lipase Vitamin B12 Vitamin D 25-Hydroxy Urine Protein Urine Ketones Urine Blood Urine Mucus 04/21/18 04/21/18 04/21/18 05:44 05:44 06:00 WBC RBC Hgb Hct MCV Plt Count Neutrophils # Lymphocytes # PT INR Chloride Carbon Dioxide BUN Glucose POC Glucose (mg/dL) 138 H Plasma Lactic Acid Fernando Calcium Total Bilirubin AST Creatine Kinase Total Creatine Kinase CK-MB (CK-2) Troponin I Total Protein Total Protein (PEP) Albumin Lipase Vitamin B12 965.0 H Vitamin D 25-Hydroxy 19.8 L Urine Protein Urine Ketones Urine Blood Urine Mucus 04/21/18 04/21/18 04/22/18 11:57 16:38 05:43 WBC RBC 2.88 L Hgb 9.7 L Hct 29.8 L MCV 103.5 H Plt Count 66 L Neutrophils # Lymphocytes # PT INR Chloride Carbon Dioxide BUN Glucose POC Glucose (mg/dL) 140 H 209 H Plasma Lactic Acid Fernando Calcium Total Bilirubin AST Creatine Kinase Total Creatine Kinase CK-MB (CK-2) Troponin I Total Protein Total Protein (PEP) Albumin Lipase Vitamin B12 Vitamin D 25-Hydroxy Urine Protein Urine Ketones Urine Blood Urine Mucus 04/22/18 04/22/18 04/22/18 05:43 05:45 11:35 WBC RBC Hgb Hct MCV Plt Count Neutrophils # Lymphocytes # PT INR Chloride 118 H Carbon Dioxide BUN 26 H Glucose 120 H POC Glucose (mg/dL) 138 H 134 H Plasma Lactic Acid Fernando Calcium 7.8 L Total Bilirubin AST 102 H Creatine Kinase 467 H Total Creatine Kinase CK-MB (CK-2) Troponin I Total Protein 4.8 L Total Protein (PEP) Albumin 2.1 L Lipase Vitamin B12 Vitamin D 25-Hydroxy Urine Protein Urine Ketones Urine Blood Urine Mucus 04/22/18 04/22/18 04/22/18 14:34 16:28 20:59 WBC RBC Hgb Hct MCV Plt Count Neutrophils # Lymphocytes # PT INR Chloride Carbon Dioxide BUN Glucose POC Glucose (mg/dL) 134 H 150 H Plasma Lactic Acid Fernando Calcium Total Bilirubin AST Creatine Kinase Total Creatine Kinase CK-MB (CK-2) Troponin I Total Protein Total Protein (PEP) 5.8 L Albumin Lipase Vitamin B12 Vitamin D 25-Hydroxy Urine Protein Urine Ketones Urine Blood Urine Mucus 04/22/18 04/22/18 04/23/18 21:00 21:00 05:18 WBC RBC 2.98 L Hgb 10.1 L Hct 31.6 L MCV 106.0 H Plt Count 66 L Neutrophils # 8.6 H Lymphocytes # 0.5 L PT 14.2 H 13.2 H INR 1.5 H 1.4 H Chloride Carbon Dioxide BUN Glucose POC Glucose (mg/dL) Plasma Lactic Acid Fernando Calcium Total Bilirubin AST Creatine Kinase Total Creatine Kinase CK-MB (CK-2) Troponin I Total Protein Total Protein (PEP) Albumin Lipase Vitamin B12 Vitamin D 25-Hydroxy Urine Protein Urine Ketones Urine Blood Urine Mucus 04/23/18 04/23/18 04/23/18 05:19 05:19 06:08 WBC 15.1 H RBC 3.32 L Hgb 11.3 L Hct 35.5 L MCV 106.8 H Plt Count 95 L Neutrophils # 13.3 H Lymphocytes # 0.9 L PT INR Chloride 118 H Carbon Dioxide 20 L BUN 26 H Glucose 119 H POC Glucose (mg/dL) 126 H Plasma Lactic Acid Fernando Calcium 8.0 L Total Bilirubin 1.8 H AST 82 H Creatine Kinase Total Creatine Kinase CK-MB (CK-2) Troponin I Total Protein 5.5 L Total Protein (PEP) Albumin 2.5 L Lipase Vitamin B12 Vitamin D 25-Hydroxy Urine Protein Urine Ketones Urine Blood Urine Mucus 04/23/18 04/23/18 08:13 11:42 WBC RBC Hgb Hct MCV Plt Count Neutrophils # Lymphocytes # PT INR Chloride Carbon Dioxide BUN Glucose POC Glucose (mg/dL) 118 H 107 H Plasma Lactic Acid Fernando Calcium Total Bilirubin AST Creatine Kinase Total Creatine Kinase CK-MB (CK-2) Troponin I Total Protein Total Protein (PEP) Albumin Lipase Vitamin B12 Vitamin D 25-Hydroxy Urine Protein Urine Ketones Urine Blood Urine Mucus - Diagnostic Findings Chest x-ray: image reviewed (Chest x-ray is consistent with pulmonary edema, however underlying pneumonia is not entirely ruled out but felt to be less likely.) Assessment and Plan Assessment: Impression: 1 acute hypoxic respiratory failure mostly secondary to pulmonary edema, possibility of aspiration pneumonia and pulmonary embolism are in the differential, but felt to be less likely, and my index of suspicion for both is very minimal. 2 multiple comorbidities including cirrhosis of the liver, ascites, coagulopathy secondary to liver disease, thrombocytopenia secondary to liver disease, atrial fibrillation, hypertension, hypercholesterolemia, and dementia. Recommendation: Continue BiPAP for now, diurese the patient with Lasix, monitor in the ICU, no need for CT of the chest, no need for a [place] filter placement, continue heparin, monitor for any signs of bleeding, in the meantime I had a discussion with his daughter at bedside, clearly the patient is DO NOT RESUSCITATE CODE STATUS, we will continue to treat conservatively. Definitely no life-support, no CPR, no defibrillation, no intubation. Prognosis is guarded , we'll continue to follow. Time with Patient: Greater than 30
[2018-04-23] MEDS: MORPHINE SULFATE 2 MG/ML SYRINGE IVP PRN (13:29)
--- NOTE | 2018-04-23 13:46 | P.CONS ---
History of Present Illness - Reason for Consult Consult date: 04/23/18 LLE DVT, thrombocytopenia Requesting physician: Maxi Thompson - Chief Complaint Fall, rabdomyolysis - History of Present Illness Mr. Wheatley is a very pleasant 83-year-old gentleman with multiple comorbidities including dementia who is here after a fall, found to have rhabdomyolysis. He was being evaluated for generalized swelling as an outpatient. His daughter checks in on him regularly and when she went to visit him she found him on the floor for at least 12-14 hours. She called EMS and brought him in where he was found to have rhabdomyolysis. Workup for his swelling was completed with an abdominal ultrasound which showed ascites and cirrhosis. He was also found to have thrombocytopenia. His course was complicated by increased bilateral lower extremity swelling and Doppler showed an acute left lower extremity DVT. Initially anticoagulation was held due to platelets of 66 however heparin drip was started this morning after his platelets improved to 95. His workup also included a right lower lobe infiltrate on chest x-ray which she is on antibiotics for. He has been having increased respiratory distress as well and PE is suspected. He is on BiPAP, he is a DO NOT RESUSCITATE. No personal or family history of DVT, autoimmune diseases, cancers, or miscarriages. No smoking. Review of Systems All systems: negative Constitutional: Reports as per HPI Past Medical History Past Medical History: Atrial Fibrillation, Diabetes Mellitus, Eye Disorder, Hyperlipidemia, Hypertension Additional Past Medical History / Comment(s): Past medical record indicates Afib but to unaware, past few weeks lower leg edema and last week abdomin getting larger (10 pound weight gain) and decreased appetite/diarrhea then constipation past 5 days, bilateral legs/feet painful to ambulate since swelling , bone marrow suppression, NIDDM type II, DDD, abdominal aortic aneurysm, macular degeneration bilaterally, occasional confusion, falls lately. 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 Past Anesthesia/Blood Transfusion Reactions: No Reported Reaction Smoking Status: Never smoker - Past Family History Father Family Medical History: Vascular Disorder Additional Family Medical History / Comment(s): Father from a ruptured aortic aneurysm. Mother Family Medical History: Dementia, Diabetes Mellitus Additional Family Medical History / Comment(s): Mother lived to be 100yrs old. Son(s) Family Medical History: Vascular Disorder Additional Family Medical History / Comment(s): Son from a ruptured aortic aneurysm. Family Additional Family Medical History / Comment(s): Unable to obtain family history at this time due to patient confusion and not available family members Medications and Allergies Home Medications Medication Instructions Recorded Confirmed Type Memantine [Namenda] 10 mg PO BID 04/20/18 04/20/18 History Metoprolol Succinate [Toprol Xl] 25 mg PO DAILY 04/20/18 04/20/18 History Simvastatin [Zocor] 20 mg PO HS 04/20/18 04/20/18 History amLODIPine [Norvasc] 2.5 mg PO DAILY 04/20/18 04/20/18 History metFORMIN HCL ER [Glucophage Xr] 500 mg PO PC-SUPPER 04/20/18 04/20/18 History Allergies Allergy/AdvReac Type Severity Reaction Status Date / Time No Known Allergies Allergy Verified 04/20/18 09:01 Physical Exam Vitals: Vital Signs Temp Pulse Pulse Resp BP BP Pulse Ox 04/23/18 11:00 109 H 29 H 83/58 95 04/23/18 10:00 106 H 30 H 95/55 95 04/23/18 09:30 103 H 27 H 79/56 94 L 04/23/18 09:00 114 H 30 H 89/56 92 L 04/23/18 08:45 126 H 33 H 72/51 95 04/23/18 08:30 98 30 H 87/52 94 L 04/23/18 08:15 120 H 37 H 102/69 100 04/23/18 08:00 99.2 F 118 H 37 H 108/66 95 04/23/18 07:02 121 H 32 H 118/81 87 L 04/23/18 06:43 102 H 28 H 144/74 90 L 04/23/18 06:13 136 H 36 H 130/81 85 L 04/23/18 05:25 99 F 108 H 32 H 115/62 90 L 04/23/18 04:00 108 H 32 H 04/23/18 03:04 86 18 94/60 90 L 04/22/18 23:36 99 F 73 18 90/64 94 L 04/22/18 20:00 92 24 129/67 92 L 04/22/18 16:00 97.0 F L 96 26 H 128/82 95 Intake and Output 04/22/18 04/23/18 04/23/18 22:59 06:59 14:59 Intake Total 317.5 Output Total 60 700 650 Balance -60 -700 -332.5 Intake: IV 317.5 .9 30 Piperacillin-Tazobactam 3 37.5 .375 gm In Dextrose/Water 1 50ml.bag @ 12.5 mls/hr IVPB ONCE STA Rx#: [id number] Vancomycin 1,000 mg In 250 Sodium Chloride 0.9% 250 ml @ 125 mls/hr IVPB ONCE STA Rx#:[id number] Output: Urine 60 700 650 Other: Voiding Method Indwelling Catheter Indwelling Catheter # Bowel Movements 1 General: On bipap. HEENT: Mucosa moist. Neck: Neck supple. Lungs: Mild respiratory distress, on Bipap. Heart: RRR. Bilateral LE edema. Abdomen: Soft, nontender. MSK: Moving all extremities. Neuro: Alert. Skin: No jaundice or rash. Psych: Appropriate affect. Results CBC & Chem 7: 04/23/18 05:19 04/23/18 05:19 Labs: Abnormal Lab Results - Last 24 Hours (Table) 04/22/18 04/22/18 04/22/18 Range/Units 14:34 16:28 20:59 WBC (3.8-10.6) k/uL RBC (4.30-5.90) m/uL Hgb (13.0-17.5) gm/dL Hct (39.0-53.0) % MCV (80.0-100.0) fL Plt Count (150-450) k/uL Neutrophils # (1.3-7.7) k/uL Lymphocytes # (1.0-4.8) k/uL PT (9.0-12.0) sec INR (<1.2) Chloride (98-107) mmol/L Carbon Dioxide (22-30) mmol/L BUN (9-20) mg/dL Glucose (74-99) mg/dL POC Glucose (mg/dL) 134 H 150 H (75-99) mg/dL Calcium (8.4-10.2) mg/dL Total Bilirubin (0.2-1.3) mg/dL AST (17-59) U/L Total Protein (6.3-8.2) g/dL Total Protein (PEP) 5.8 L (6.2-8.2) g/dL Albumin (3.5-5.0) g/dL 04/22/18 04/22/18 04/23/18 Range/Units 21:00 21:00 05:18 WBC (3.8-10.6) k/uL RBC 2.98 L (4.30-5.90) m/uL Hgb 10.1 L (13.0-17.5) gm/dL Hct 31.6 L (39.0-53.0) % MCV 106.0 H (80.0-100.0) fL Plt Count 66 L (150-450) k/uL Neutrophils # 8.6 H (1.3-7.7) k/uL Lymphocytes # 0.5 L (1.0-4.8) k/uL PT 14.2 H 13.2 H (9.0-12.0) sec INR 1.5 H 1.4 H (<1.2) Chloride (98-107) mmol/L Carbon Dioxide (22-30) mmol/L BUN (9-20) mg/dL Glucose (74-99) mg/dL POC Glucose (mg/dL) (75-99) mg/dL Calcium (8.4-10.2) mg/dL Total Bilirubin (0.2-1.3) mg/dL AST (17-59) U/L Total Protein (6.3-8.2) g/dL Total Protein (PEP) (6.2-8.2) g/dL Albumin (3.5-5.0) g/dL 04/23/18 04/23/18 04/23/18 Range/Units 05:19 05:19 06:08 WBC 15.1 H (3.8-10.6) k/uL RBC 3.32 L (4.30-5.90) m/uL Hgb 11.3 L (13.0-17.5) gm/dL Hct 35.5 L (39.0-53.0) % MCV 106.8 H (80.0-100.0) fL Plt Count 95 L (150-450) k/uL Neutrophils # 13.3 H (1.3-7.7) k/uL Lymphocytes # 0.9 L (1.0-4.8) k/uL PT (9.0-12.0) sec INR (<1.2) Chloride 118 H (98-107) mmol/L Carbon Dioxide 20 L (22-30) mmol/L BUN 26 H (9-20) mg/dL Glucose 119 H (74-99) mg/dL POC Glucose (mg/dL) 126 H (75-99) mg/dL Calcium 8.0 L (8.4-10.2) mg/dL Total Bilirubin 1.8 H (0.2-1.3) mg/dL AST 82 H (17-59) U/L Total Protein 5.5 L (6.3-8.2) g/dL Total Protein (PEP) (6.2-8.2) g/dL Albumin 2.5 L (3.5-5.0) g/dL 04/23/18 04/23/18 Range/Units 08:13 11:42 WBC (3.8-10.6) k/uL RBC (4.30-5.90) m/uL Hgb (13.0-17.5) gm/dL Hct (39.0-53.0) % MCV (80.0-100.0) fL Plt Count (150-450) k/uL Neutrophils # (1.3-7.7) k/uL Lymphocytes # (1.0-4.8) k/uL PT (9.0-12.0) sec INR (<1.2) Chloride (98-107) mmol/L Carbon Dioxide (22-30) mmol/L BUN (9-20) mg/dL Glucose (74-99) mg/dL POC Glucose (mg/dL) 118 H 107 H (75-99) mg/dL Calcium (8.4-10.2) mg/dL Total Bilirubin (0.2-1.3) mg/dL AST (17-59) U/L Total Protein (6.3-8.2) g/dL Total Protein (PEP) (6.2-8.2) g/dL Albumin (3.5-5.0) g/dL Comments: 2D echo with EF 55-60% Chest x-ray: report reviewed US - abdomen: report reviewed Venous US: report reviewed Assessment and Plan Assessment: 1. LLE DVT 2. Thrombocytopenia 3. Rabdomyolysis 4. RLL pneumonia 5. Cirrhosis Plan: Mr. Wheatley is a very pleasant 83-year-old gentleman with multiple comorbidities who is here after falling and not being able to get up, found to have rhabdomyolysis, possible right lower lobe pneumonia, new onset cirrhosis, and course complicated by worsening lower extremity swelling due to acute left lower extremity DVT. He also has been having increasing respiratory distress and PE is suspected. He has also thrombocytopenia with platelets of 66 however this improved to 95 today and a heparin drip was started. His DVT and likely PE is provoked due to immobility and underlying cirrhosis. No further hypercoagulable workup needed at this time other than outpatient age- appropriate cancer screening. Would recommend anticoagulation with heparin drip for now and platelet transfusion as needed to maintain platelets above 50. Would hold off on an IVC filter unless he has signs of bleeding that would necessitate holding his anticoagulation. Once his acute condition improves he could be transitioned to an oral anticoagulant. I discussed this case with his daughter in detail and she is agreeable to the plan.
[2018-04-23] MEDS: NYSTATIN 100,000 UNIT/GM POWD 15 GM TOPICAL SCH ×3 (14:23→21:48)
[2018-04-23] MEDS: LORazepam 2 MG/ML INJ IV PRN (14:44)
[2018-04-23] MEDS: DIGOXIN 250 MCG/ML 2 ML AMP IVP SCH ×2 (16:56→23:01)
[2018-04-23 17:18] LABS: Glucose,Whole Blood 146 mg/dL (75-99)
--- NOTE | 2018-04-23 18:02 | P.PN ---
Subjective Progress Note Date: 04/23/18 Patient was seen and examined at bedside. Overnight, the patient's respiratory status worsened with suspected PE for which the patient was started on a Heparin infusion. CXR had revealed rick pleural effusions and infiltrates suspicious for edema with the patient subsequently receiving Lasix 40 mg IVP x 2 and being placed on BiPAP. He also received Vancomycin and Zosyn and was transferred to the ICU. Discussed with patient's family (daughter, son, brother ) at bedside. They further reinforced the patient's wishes of being DNR/DNI. At time of my examination, the patient is only responsive to noxious stimuli, w/ some localizing and groaning. Objective - Vital Signs Vital signs: Vital Signs Temp 97.7 F 04/23/18 16:00 Pulse 114 H 04/23/18 17:00 Resp 21 04/23/18 17:00 BP 107/75 04/23/18 17:00 Pulse Ox 98 04/23/18 17:00 Intake & Output 04/22/18 04/23/18 04/23/18 18:59 06:59 18:59 Intake Total 625 391.531 Output Total 593 514 3316 Balance 415 700 803.469 Intake: IV 625 380.0 .9 80 Piperacillin-Tazobactam 3 50.0 .375 gm In Dextrose/Water 1 50ml.bag @ 12.5 mls/hr IVPB ONCE STA Rx#: [id number] Sodium Chloride 0.9% 1, 625 000 ml @ 100 mls/hr IV . Q10H [facility] Rx#:[id number] Vancomycin 1,000 mg In 250 Sodium Chloride 0.9% 250 ml @ 125 mls/hr IVPB ONCE STA Rx#:[id number] Intake, IV Titration 11.531 Amount Norepinephrine 4 mg In 11.531 Sodium Chloride 0.9% 250 ml @ Titrate IV .Q0M [facility] Rx#:[id number] Output: Urine 815 255 8143 Other: Voiding Method Indwelling Catheter Indwelling Catheter # Bowel Movements 1 - Exam General: Elderly M, on BiPAP HEENT: NC/AT, anicteric sclerae, no lid-lag, PERRLA, dry oropharynx, no erythema , exudates Cardiovascular: S1/S2 wnl, tachycardic, irregularly irregular, no murmurs appreciated Lungs: Mild coarse breath sounds rick, using accessory muscles of breathing Abdominal: Mildly distended, no fluid thrill appreciated Skin: Warm, dry Extremities: 2+ LE edema, no contractures Psychiatric: Somewhat responsive to noxious stimuli, w/ groaning and localizing to pain - Labs CBC & Chem 7: 18 05:19 04/23/18 05:19 Labs: Abnormal Lab Results - Last 24 Hours (Table) 04/22/18 04/22/18 04/22/18 Range/Units 14:34 20:59 21:00 WBC (3.8-10.6) k/uL RBC 2.98 L (4.30-5.90) m/uL Hgb 10.1 L (13.0-17.5) gm/dL Hct 31.6 L (39.0-53.0) % MCV 106.0 H (80.0-100.0) fL Plt Count 66 L (150-450) k/uL Neutrophils # 8.6 H (1.3-7.7) k/uL Lymphocytes # 0.5 L (1.0-4.8) k/uL PT (9.0-12.0) sec INR (<1.2) APTT (22.0-30.0) sec Chloride (98-107) mmol/L Carbon Dioxide (22-30) mmol/L BUN (9-20) mg/dL Glucose (74-99) mg/dL POC Glucose (mg/dL) 150 H (75-99) mg/dL Calcium (8.4-10.2) mg/dL Total Bilirubin (0.2-1.3) mg/dL AST (17-59) U/L Total Protein (6.3-8.2) g/dL Total Protein (PEP) 5.8 L (6.2-8.2) g/dL Albumin (3.5-5.0) g/dL 04/22/18 04/23/18 04/23/18 Range/Units 21:00 05:18 05:19 WBC 15.1 H (3.8-10.6) k/uL RBC 3.32 L (4.30-5.90) m/uL Hgb 11.3 L (13.0-17.5) gm/dL Hct 35.5 L (39.0-53.0) % MCV 106.8 H (80.0-100.0) fL Plt Count 95 L (150-450) k/uL Neutrophils # 13.3 H (1.3-7.7) k/uL Lymphocytes # 0.9 L (1.0-4.8) k/uL PT 14.2 H 13.2 H (9.0-12.0) sec INR 1.5 H 1.4 H (<1.2) APTT (22.0-30.0) sec Chloride (98-107) mmol/L Carbon Dioxide (22-30) mmol/L BUN (9-20) mg/dL Glucose (74-99) mg/dL POC Glucose (mg/dL) (75-99) mg/dL Calcium (8.4-10.2) mg/dL Total Bilirubin (0.2-1.3) mg/dL AST (17-59) U/L Total Protein (6.3-8.2) g/dL Total Protein (PEP) (6.2-8.2) g/dL Albumin (3.5-5.0) g/dL 04/23/18 04/23/18 04/23/18 Range/Units 05:19 06:08 08:13 WBC (3.8-10.6) k/uL RBC (4.30-5.90) m/uL Hgb (13.0-17.5) gm/dL Hct (39.0-53.0) % MCV (80.0-100.0) fL Plt Count (150-450) k/uL Neutrophils # (1.3-7.7) k/uL Lymphocytes # (1.0-4.8) k/uL PT (9.0-12.0) sec INR (<1.2) APTT (22.0-30.0) sec Chloride 118 H (98-107) mmol/L Carbon Dioxide 20 L (22-30) mmol/L BUN 26 H (9-20) mg/dL Glucose 119 H (74-99) mg/dL POC Glucose (mg/dL) 126 H 118 H (75-99) mg/dL Calcium 8.0 L (8.4-10.2) mg/dL Total Bilirubin 1.8 H (0.2-1.3) mg/dL AST 82 H (17-59) U/L Total Protein 5.5 L (6.3-8.2) g/dL Total Protein (PEP) (6.2-8.2) g/dL Albumin 2.5 L (3.5-5.0) g/dL 04/23/18 04/23/18 04/23/18 Range/Units 11:42 13:51 17:17 WBC (3.8-10.6) k/uL RBC (4.30-5.90) m/uL Hgb (13.0-17.5) gm/dL Hct (39.0-53.0) % MCV (80.0-100.0) fL Plt Count (150-450) k/uL Neutrophils # (1.3-7.7) k/uL Lymphocytes # (1.0-4.8) k/uL PT (9.0-12.0) sec INR (<1.2) APTT 51.1 H (22.0-30.0) sec Chloride (98-107) mmol/L Carbon Dioxide (22-30) mmol/L BUN (9-20) mg/dL Glucose (74-99) mg/dL POC Glucose (mg/dL) 107 H 146 H (75-99) mg/dL Calcium (8.4-10.2) mg/dL Total Bilirubin (0.2-1.3) mg/dL AST (17-59) U/L Total Protein (6.3-8.2) g/dL Total Protein (PEP) (6.2-8.2) g/dL Albumin (3.5-5.0) g/dL Assessment and Plan Plan: Septic shock and acute hypoxic respiratory failure, multifactorial, secondary to PE vs aspiration pneumonia vs fluid overload -C/w BiPAP -C/w pressor support (Vasopressin) -C/w Vancomycin and Zosyn -C/w Heparin infusion -Received Lasix 80 mg IVP -C/w ICU level of care -Pulmonary recs appreciated -I/Os Cirrhosis -Hepatitis panel thus far negative. GI consulted, recs appreciated -Family notes patient has no history of alcohol abuse -Echocardiogram reviewed: EF 55-60% HTN -Hold all antihypertensives CAD s/p CABG -Echo reviewed, LVEF 55-60% Afib w/ RVR -Received 1 dose of Digoxin 250 mcg -Cardiology consulted, recs appreciated DVT//GI prophyl -Heparin infusion -Pepcid IV Leukocytosis, resolved
[2018-04-23] MEDS ORDERED: VANCOMYCIN IV PER PHARMACY 1 EACH MISC MISCELLANE PRN (18:07)
[2018-04-23] MEDS: SODIUM CHLORIDE 0.9% 99 ML with VASOPRESSIN 20 UNIT IV SCH ×2 (18:44)
[2018-04-23] MEDS ORDERED: VANCOMYCIN 1,500 MG in SODIUM CHLORIDE 0.9% 250 ML IVPB SCH (21:00)
[2018-04-23] MEDS: PIPERACILLIN-TAZOBACTAM 3.375 GM in DEXTROSE/WATER 1 50ML.BAG IVPB SCH (23:01)
[2018-04-24 00:32] LABS: Glucose,Whole Blood 155 mg/dL (75-99)
[2018-04-24] MEDS: INSULIN ASPART 100 UNIT/ML 1 ML 10 ML VIAL SQ SCH ×3 (00:33→12:07)
[2018-04-24] MEDS: LORazepam 2 MG/ML INJ IV PRN (01:27)
[2018-04-24] MEDS: HEPARIN SOD,PORK IN 0.45% NACL 25,000 UNIT in 0.45% NACL 1 500ML.BAG IV SCH ×2 (05:06→09:53)
[2018-04-24] MEDS: SODIUM CHLORIDE 0.9% 1,000 ML IV SCH ×2 (05:07→11:50)
[2018-04-24 06:07] LABS: Glucose,Whole Blood 174 mg/dL (75-99)
[2018-04-24 06:09] LABS: Albumin 2.2 g/dL (3.5-5.0); Calcium 7.7 mg/dL (8.4-10.2); Magnesium 1.8 mg/dL (1.6-2.3); Potassium 4.2 mmol/L (3.5-5.1); Total Bilirubin 1.9 mg/dL (0.2-1.3); Total Protein 5.1 g/dL (6.3-8.2)
[2018-04-24] MEDS ORDERED: Magnesium Replacement Protocol 1 EACH MISC MISCELLANE PRN (06:11)
[2018-04-24 06:23] LABS: MCH 34.5 pg (25.0-35.0); MCHC 32.5 g/dL (31.0-37.0); MCV 106.1 fL (80.0-100.0); Macrocytosis Moderate; Mean Platelet Volume 8.7; RDW 14.7 % (11.5-15.5); WBC 10.8 k/uL (3.8-10.6)
[2018-04-24 06:25] LABS: Platelet Count 56 k/uL (150-450)
--- NOTE | 2018-04-24 06:43 | XR ---
EXAMINATION TYPE: XR chest 1V DATE OF EXAM: 04/24/2018 HISTORY: CHF. REFERENCE: Previous study dated 04/23/2018. FINDINGS: There has been a midline sternotomy. There is improved aeration of both lungs. There is a small right effusion. The heart is not enlarged. IMPRESSION: IMPROVED AERATION, BOTH LUNGS.
[2018-04-24 07:07] LABS: Anisocytosis (M) Present; Band Neutrophils % 16 %; Lymphocytes # (M) 0.54 k/uL (1.0-4.8); Monocytes # (M) 0.32 k/uL (0-1.0); Neutrophils % (M) 77 %; Nucleated Red Blood Cells 0 /100 WBC (0-0); Poikilocytosis (M) Present; Polychromasia Present; Total Cells Counted 200
[2018-04-24] MEDS: MEMANTINE 10 MG TAB PO SCH (07:39)
[2018-04-24] MEDS: NYSTATIN 100,000 UNIT/GM POWD 15 GM TOPICAL SCH (07:39)
[2018-04-24] MEDS ORDERED: FUROSEMIDE 10 MG/ML 4 ML VIAL IV SCH (08:30)
[2018-04-24] MEDS: PIPERACILLIN-TAZOBACTAM 3.375 GM in DEXTROSE/WATER 1 50ML.BAG IVPB SCH (08:44)
[2018-04-24] MEDS: SODIUM CHLORIDE 0.9% 99 ML with VASOPRESSIN 20 UNIT IV SCH ×2 (08:46)
[2018-04-24] MEDS ORDERED: VANCOMYCIN 1,250 MG in SODIUM CHLORIDE 0.9% 250 ML IVPB SCH (09:00)
[2018-04-24] MEDS: MAGNESIUM SULFATE-D5W PMX 1 GM in DEXTROSE/WATER 1 100ML.BAG IVPB SCH ×2 (09:16→14:32)
[2018-04-24] MEDS: FAMOTIDINE 20 MG/2 ML VIAL IV SCH (09:17)
--- NOTE | 2018-04-24 10:43 | P.CRDCN ---
History of Present Illness Consult date: 04/24/18 History of present illness: This is a 83-year-old gentleman who was living by himself was brought in by his doctor to the hospital after he was found on the floor unresponsive for several days. Since admission, he was diagnosed to have rhabdomyolysis, or DVT and also evidence of pulmonary edema and CHF. He was having atrial fibrillation with rapid response. He was given IV digoxin. His rate is down and in the 70s now. He is a DO NOT RESUSCITATE. There is a consultation for comfort care. Patient has been obtunded since the event incident yesterday. He is moaning and groaning and closes his eye rates when we try to open them. Patient is also on heparin. He has patient is being considered for comfort care, no further Cardec sedation at this time. If there is any change in his level of care, may consider getting an echocardiogram. Otherwise, we'll continue current medical therapy. We'll be seeing him on when necessary basis Review of Systems Not obtained Past Medical History Past Medical History: Atrial Fibrillation, Diabetes Mellitus, Eye Disorder, Hyperlipidemia, Hypertension Additional Past Medical History / Comment(s): Past medical record indicates Afib but to unaware, past few weeks lower leg edema and last week abdomin getting larger (10 pound weight gain) and decreased appetite/diarrhea then constipation past 5 days, bilateral legs/feet painful to ambulate since swelling , bone marrow suppression, NIDDM type II, DDD, abdominal aortic aneurysm, macular degeneration bilaterally, occasional confusion, falls lately. History of Any Multi-Drug Resistant Organisms: None Reported Past Surgical History: Coronary Bypass/CABG, Heart Catheterization Additional Past Surgical History / Comment(s): 1994 quadruple coronary bypass, colonoscopy years ago, bilateral cataract removals. Past Anesthesia/Blood Transfusion Reactions: No Reported Reaction Smoking Status: Never smoker - Past Family History Father Family Medical History: Vascular Disorder Additional Family Medical History / Comment(s): Father from a ruptured aortic aneurysm. Mother Family Medical History: Dementia, Diabetes Mellitus Additional Family Medical History / Comment(s): Mother lived to be 100yrs old. Son(s) Family Medical History: Vascular Disorder Additional Family Medical History / Comment(s): Son from a ruptured aortic aneurysm. Family Additional Family Medical History / Comment(s): Unable to obtain family history at this time due to patient confusion and not available family members Medications and Allergies Home Medications Medication Instructions Recorded Confirmed Type Memantine [Namenda] 10 mg PO BID 04/20/18 04/20/18 History Metoprolol Succinate [Toprol Xl] 25 mg PO DAILY 04/20/18 04/20/18 History Simvastatin [Zocor] 20 mg PO HS 04/20/18 04/20/18 History amLODIPine [Norvasc] 2.5 mg PO DAILY 04/20/18 04/20/18 History metFORMIN HCL ER [Glucophage Xr] 500 mg PO PC-SUPPER 04/20/18 04/20/18 History Allergies Allergy/AdvReac Type Severity Reaction Status Date / Time No Known Allergies Allergy Verified 04/20/18 09:01 Physical Exam Vitals: Vital Signs Temp Pulse Resp BP Pulse Ox 04/24/18 09:00 69 28 H 108/64 95 04/24/18 08:45 76 27 H 118/60 94 L 04/24/18 08:30 62 28 H 110/64 95 04/24/18 08:15 77 28 H 108/65 93 L 04/24/18 08:00 96.8 F L 74 32 H 113/63 93 L 04/24/18 07:45 69 28 H 103/59 94 L 04/24/18 07:30 78 25 H 111/62 95 04/24/18 07:15 75 28 H 109/61 93 L 04/24/18 07:00 82 34 H 119/61 94 L 04/24/18 06:45 75 32 H 115/65 95 04/24/18 06:30 76 28 H 113/71 94 L 04/24/18 06:15 77 36 H 102/57 91 L 04/24/18 06:00 76 29 H 105/59 94 L 04/24/18 05:45 79 28 H 105/59 96 04/24/18 05:30 76 29 H 115/57 95 04/24/18 05:15 71 31 H 109/57 95 04/24/18 05:00 78 32 H 114/61 95 04/24/18 04:45 69 27 H 123/69 96 04/24/18 04:30 73 45 H 106/62 95 04/24/18 04:15 64 29 H 116/66 94 L 04/24/18 04:00 97.8 F 71 28 H 117/58 95 04/24/18 03:45 76 26 H 124/62 95 04/24/18 03:30 71 24 135/69 97 04/24/18 03:15 68 37 H 128/68 98 04/24/18 03:00 70 37 H 115/66 97 04/24/18 02:45 62 19 109/60 98 04/24/18 02:30 62 19 89/55 98 04/24/18 02:15 67 26 H 96 04/24/18 02:00 72 20 83/53 95 04/24/18 01:45 75 22 106/59 95 04/24/18 01:30 80 30 H 107/70 93 L 04/24/18 01:15 93 33 H 120/69 92 L 04/24/18 01:00 86 34 H 116/70 97 04/24/18 00:45 71 23 132/72 96 04/24/18 00:30 80 26 H 123/61 98 04/24/18 00:15 72 32 H 119/69 97 04/24/18 00:00 97.6 F 76 23 135/72 98 04/23/18 23:45 70 26 H 119/66 96 04/23/18 23:30 88 28 H 97 04/23/18 23:27 77 21 98 04/23/18 23:15 69 24 121/68 96 04/23/18 23:00 76 19 107/66 97 04/23/18 22:45 74 30 H 118/72 95 04/23/18 22:30 87 453 H 112/79 97 04/23/18 22:15 73 38 H 123/66 98 04/23/18 22:00 96 32 H 118/72 98 04/23/18 21:45 94 38 H 128/75 97 04/23/18 21:30 76 37 H 108/65 97 04/23/18 21:15 80 24 113/65 97 04/23/18 21:00 82 29 H 104/60 97 04/23/18 20:45 79 36 H 100/68 97 04/23/18 20:30 90 17 89/60 97 04/23/18 20:15 88 18 103/70 97 04/23/18 20:00 97.8 F 81 18 119/83 97 09/22/18 19:45 86 22 97/67 99 04/23/18 19:30 83 18 100/62 99 04/23/18 19:15 91 18 98/56 98 04/23/18 19:00 84 40 H 80/60 98 04/23/18 18:45 81 29 H 90/54 98 04/23/18 18:30 85 30 H 93/63 99 04/23/18 18:15 114 H 30 H 92/64 98 04/23/18 18:00 92 27 H 87/64 98 04/23/18 17:45 122 H 21 83/62 98 04/23/18 17:30 78 19 68/53 97 04/23/18 17:15 91 19 94/64 97 04/23/18 17:00 114 H 21 107/75 98 04/23/18 16:45 121 H 23 123/71 96 04/23/18 16:30 115 H 21 105/75 95 04/23/18 16:15 131 H 24 83/59 97 04/23/18 16:00 97.7 F 123 H 21 172/92 96 04/23/18 15:45 114 H 28 H 73/55 95 04/23/18 15:30 115 H 23 72/58 95 04/23/18 15:15 116 H 18 69/53 94 L 04/23/18 15:00 104 H 25 H 92/60 95 04/23/18 14:45 139 H 30 H 92/60 94 L 04/23/18 14:30 126 H 24 92/60 95 04/23/18 14:15 139 H 31 H 154/81 95 04/23/18 14:00 128 H 28 H 154/81 93 L 04/23/18 13:20 142 H 39 H 82/55 04/23/18 13:10 152 H 40 H 82/55 04/23/18 13:00 114 H 32 H 82/55 92 L 04/23/18 12:00 98.7 F 103 H 32 H 91/67 93 L 04/23/18 11:00 109 H 29 H 83/58 95 Intake and Output 04/23/18 04/24/18 04/24/18 22:59 06:59 14:59 Intake Total 380.366 662.5 257.044 Output Total 245 265 90 Balance 135.366 397.5 167.044 Intake: IV 360 162.5 167.5 .9 110 100 30 Piperacillin-Tazobactam 3 62.5 12.5 .375 gm In Dextrose/Water 1 50ml.bag @ 12.5 mls/hr IVPB ONCE STA Rx#: [id number] Vancomycin 1,000 mg In 250 125 Sodium Chloride 0.9% 250 ml @ 125 mls/hr IVPB ONCE STA Rx#:[id number] Intake, IV Titration 20.366 500 89.544 Amount Heparin Sod,Pork in 0.45% 500 89.544 NaCl 25,000 unit In 0.45 % NaCl 1 500ml.bag @ 18 UNITS/KG/HR 28.08 mls/hr IV .[id number] [facility] Rx#: [id number] Norepinephrine 4 mg In 20.366 Sodium Chloride 0.9% 250 ml @ Titrate IV .Q0M [facility] Rx#:[id number] Output: Urine 245 265 90 Other: Voiding Method Indwelling Catheter Indwelling Catheter Weight 94.2 kg GENERAL EXAM: Patient is obtunded HEENT: Normocephalic. Normal reaction of pupils, equal size, normal range of extraocular motion. No erythema or exudates in the throat. NECK: No masses, no nuchal rigidity. CHEST: No chest wall deformity. LUNGS: Wheezing and rhonchi HEART: S1 and S2 normal. Distant heart sounds ABDOMEN: No hepatosplenomegaly, normal bowel sounds, no guarding or rigidity. SKIN: No rashes CENTRAL NERVOUS SYSTEM: No focal deficits. EXTREMITIES: Bilateral edema Results 04/24/18 05:40 04/24/18 05:40 Cardiac Enzymes 04/24/18 Range/Units 05:40 AST 57 (17-59) U/L Coagulation 04/23/18 04/24/18 Range/Units 13:51 05:50 APTT 51.1 H 61.5 H (22.0-30.0) sec CBC 04/24/18 Range/Units 05:40 WBC 10.8 H (3.8-10.6) k/uL RBC 3.20 L (4.30-5.90) m/uL Hgb 11.0 L (13.0-17.5) gm/dL Hct 34.0 L (39.0-53.0) % Plt Count 56 L (150-450) k/uL Comprehensive Metabolic Panel 04/24/18 Range/Units 05:40 Sodium 144 (137-145) mmol/L Potassium 4.2 (3.5-5.1) mmol/L Chloride 121 H (98-107) mmol/L Carbon Dioxide 16 L (22-30) mmol/L BUN 35 H (9-20) mg/dL Creatinine 0.97 (0.66-1.25) mg/dL Glucose 162 H (74-99) mg/dL Calcium 7.7 L (8.4-10.2) mg/dL AST 57 (17-59) U/L ALT 52 (21-72) U/L Alkaline Phosphatase 51 (38-126) U/L Total Protein 5.1 L (6.3-8.2) g/dL Albumin 2.2 L (3.5-5.0) g/dL Current Medications Generic Name Dose Route Start Last Admin Trade Name Freq PRN Reason Stop Dose Admin Albuterol/Ipratropium 3 ml 04/23/18 05:36 Duoneb 0.5 Mg-3 Mg/3 Ml Soln INHALATION RT-Q4H PRN Dyspnea Famotidine 20 mg 04/23/18 09:00 04/24/18 09:17 Pepcid IV 20 mg Q12HR [facility] Administration Furosemide 40 mg 04/24/18 08:30 04/24/18 08:44 Lasix IV 40 mg Q8HR [facility] Administration Haloperidol Lactate 1 mg 04/21/18 03:38 04/21/18 03:40 Haldol IM 1 mg ONCE PRN Administration Agitation or Acute Psychosis Heparin Sodium (Porcine) 0 unit 04/23/18 06:51 Heparin IV PER PROTOCOL PRN Low PTT Protocol Heparin Sodium/Sodium Chloride 500 mls @ 28.08 mls/hr 04/23/18 07:00 09:53 25,000 unit/ Sodium Chloride IV 12 units/kg/hr .[id number] [facility] 18.72 mls/hr Administration Protocol 18 UNITS/KG/HR Sodium Chloride 1,000 mls @ 100 mls/hr 04/23/18 07:00 04/24/18 05:07 Saline 0.9% IV Not Given .Q10H [facility] Norepinephrine Bitartrate 4 mg 250 mls @ 0 mls/hr 04/23/18 09:30 04/23/18 18: 46 / Sodium Chloride IV 0 mcg/min .Q0M [facility] 0 mls/hr Titration Protocol Titrate Vasopressin 20 unit/ Sodium 100 mls @ 6 mls/hr 04/23/18 17:00 04/24/18 08:46 Chloride IV 6 mls/hr .[id number] [facility] Administration Protocol 0.02 UNITS/MIN Piperacillin/Tazobactam/ 50 mls @ 12.5 mls/hr 04/24/18 00:00 04/24/18 08:44 Dextrose 3.375 gm/ IV Solution IVPB 12.5 mls/hr Q8HR [facility] Administration Vancomycin HCl 1,250 mg/ 250 mls @ 125 mls/hr 04/24/18 09:00 04/24/18 08:47 Sodium Chloride IVPB 125 mls/hr Q12H [facility] Administration Insulin Aspart 0 unit 04/24/18 00:00 04/24/18 06:06 Novolog SQ 2 unit Q6H [facility] Administration Protocol Lorazepam 1 mg 04/23/18 14:38 04/24/18 01:27 Ativan IV 1 mg Q2H PRN Administration Anxiety Memantine 10 mg 04/20/18 09:00 04/24/18 07:39 Namenda PO Not Given BID [facility] Miscellaneous Information 1 each 04/24/18 06:11 Magnesium Per Protocol MISCELLANE DAILY PRN Per Protocol Protocol Miscellaneous Information 1 each 04/25/18 08:00 Vancomycin Trough Due MISCELLANE 04/25/18 08:01 ONCE ONE Morphine Sulfate 2 mg 04/22/18 20:24 04/23/18 13:29 Morphine Sulfate (Inj) IVP 2 mg Q4H PRN Administration Pain/Discomfort Naloxone HCl 0.2 mg 04/20/18 04:34 Narcan IV Q2M PRN Opioid Reversal Nystatin 1 applic 04/20/18 09:00 04/24/18 07:39 Mycostatin Powder TOPICAL 1 applic TID [facility] Administration Intake and Output 04/23/18 04/24/18 04/24/18 22:59 06:59 14:59 Intake Total 380.366 662.5 257.044 Output Total 245 265 90 Balance 135.366 397.5 167.044 Intake: IV 360 162.5 167.5 .9 110 100 30 Piperacillin-Tazobactam 3 62.5 12.5 .375 gm In Dextrose/Water 1 50ml.bag @ 12.5 mls/hr IVPB ONCE STA Rx#: [id number] Vancomycin 1,000 mg In 250 125 Sodium Chloride 0.9% 250 ml @ 125 mls/hr IVPB ONCE STA Rx#:[id number] Intake, IV Titration 20.366 500 89.544 Amount Heparin Sod,Pork in 0.45% 500 89.544 NaCl 25,000 unit In 0.45 % NaCl 1 500ml.bag @ 18 UNITS/KG/HR 28.08 mls/hr IV .[id number] [facility] Rx#: [id number] Norepinephrine 4 mg In 20.366 Sodium Chloride 0.9% 250 ml @ Titrate IV .Q0M [facility] Rx#:[id number] Output: Urine 245 265 90 Other: Voiding Method Indwelling Catheter Indwelling Catheter Weight 94.2 kg 04/24/18 05:40 04/24/18 05:40 EKG Interpretations (text) Initial EKG showed atrial fibrillation with controlled ventricular response Assessment and Plan (1) A-fib Current Visit: Yes Status: Acute Code(s): I48.91 - UNSPECIFIED ATRIAL FIBRILLATION SNOMED Code(s): 98138885 (2) Anemia Current Visit: Yes Status: Acute Code(s): D64.9 - ANEMIA, UNSPECIFIED SNOMED Code(s): 071166975 (3) Ascites Current Visit: Yes Status: Acute Code(s): R18.8 - OTHER ASCITES SNOMED Code(s): 437700295 (4) CHF (congestive heart failure) Current Visit: Yes Status: Acute Code(s): I50.9 - HEART FAILURE, UNSPECIFIED SNOMED Code(s): 14501411 (5) Cirrhosis of liver Current Visit: Yes Status: Acute Code(s): K74.60 - UNSPECIFIED CIRRHOSIS OF LIVER SNOMED Code(s): 72336071 (6) Coagulopathy Current Visit: Yes Status: Acute Code(s): D68.9 - COAGULATION DEFECT, UNSPECIFIED SNOMED Code(s): 00992725 Plan: Continue current medical therapy. If his level of care was changed, further evaluation considered. Prognosis is poor
[2018-04-24] MEDS: MORPHINE SULFATE 2 MG/ML SYRINGE IVP PRN (11:43)
[2018-04-24 12:03] LABS: Glucose,Whole Blood 145 mg/dL (75-99)
[2018-04-24 12:12] VITALS: TEMP 97.3
--- NOTE | 2018-04-24 12:36 | P.PN ---
Subjective Progress Note Date: 04/24/18 Principal diagnosis: acute hypoxic respiratory failure secondary to pulmonary edema, and acute rhabdomyolysis This is an 83-year-old white male known history of atrial fibrillation, diabetes , dementia, hypertension, patient lives at home by himself. Apparently recently the patient has been developing intermittent episodes of confusion, and frequent falling. Patient was brought into the hospital on 04/20/2018, mostly because he was found on the ground by his family members, felt may have been on the ground for the last 24 hours prior to being found. Patient was confused upon initial evaluation, and he was complaining of left hip pain. Upon evaluation in the ER, patient was found to have no fractures, CT of the head was unremarkable, however his metabolic profile showed elevated CPK and elevated liver enzymes. Patient was diagnosed with acute rhabdomyolysis, secondary to prolonged period of lying down on the ground. He was also diagnosed as having acute metabolic encephalopathy, patient was admitted, hydrated, however this morning the patient developed pulmonary edema as noted on the chest x-ray. Transferred to the ICU, placed on BiPAP, and I was asked to see him on consultation. Just before I evaluated the patient, patient was given Lasix, and he seems to be responding well to Lasix. Remains on BiPAP, blood pressure is marginal but not requiring any norepinephrine at this point. His BiPAP settings are IPAP of 14 EPAP of 5 and he is on 60% FiO2. Chest x-ray was reviewed and is clearly showed evidence of pulmonary edema. Underlying pneumonia or aspiration pneumonia is not entirely ruled out. There has been a dramatic worsening in the chest x-ray appearance over the last 24 hours. Renal profile was noted to be normal. CBC showed leukocytosis. CPK on admission was over 5000, CPK yesterday was 467. Since admission, the patient had some workup including abdominal ultrasound which showed ascites, swallow evaluation showed transient penetration without evidence of aspiration. 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 Hence the patient was started on heparin. Seen by gastroenterology on consultation for his cirrhosis of the liver and ascites, seen by vascular surgery on consultation, and felt no immediate need for Kristin filter placement at this point. Reevaluated today on 04/24/2018, patient continues to do poorly,remains on BiPAP , patient is not responding to any stimuli, not opening eyes, not following any instructions, he had excellent urine output with diuretics yesterday, and he'll be given more diuretics today.shortly after I evaluated the patient in the ICU, his daughter walked in, and at this point she is seriously considering hospice and comfort care measures. I updated her on her father's condition, and I felt that comfort care measures would be very appropriate at this point. Patient has multiple medical problems, prognosis is extremely poor, and comfort measures would be the best at this point. Reviewed the chest x-ray,reviewed the labs from earlier today, and again I believe comfort care would be a good option. Objective - Vital Signs Vital signs: Vital Signs Temp 97.3 F L 04/24/18 12:00 Pulse 83 04/24/18 12:00 Resp 25 H 04/24/18 12:00 BP 129/68 04/24/18 12:00 Pulse Ox 92 L 04/24/18 12:00 Intake & Output 04/23/18 04/24/18 04/24/18 18:59 06:59 18:59 Intake Total 430.366 972.5 674.544 Output Total 1245 405 865 Balance -814.634 567.5 -190.456 Weight 94.2 kg Intake: IV 410.0 472.5 585.0 .9 110 160 60 Magnesium Sulfate-D5w Pmx 100 1 gm In Dextrose/Water 1 100ml.bag @ 100 mls/hr IVPB Q1H [facility] Rx#: [id number] Piperacillin-Tazobactam 3 50.0 62.5 50.0 .375 gm In Dextrose/Water 1 50ml.bag @ 12.5 mls/hr IVPB ONCE STA Rx#: [id number] Vancomycin 1,000 mg In 250 250 125 Sodium Chloride 0.9% 250 ml @ 125 mls/hr IVPB ONCE STA Rx#:[id number] Vancomycin 1,250 mg In 250 Sodium Chloride 0.9% 250 ml @ 125 mls/hr IVPB Q12H [facility] Rx#:[id number] Intake, IV Titration 20.366 500 89.544 Amount Heparin Sod,Pork in 0.45% 500 89.544 NaCl 25,000 unit In 0.45 % NaCl 1 500ml.bag @ 18 UNITS/KG/HR 28.08 mls/hr IV .[id number] [facility] Rx#: [id number] Norepinephrine 4 mg In 20.366 Sodium Chloride 0.9% 250 ml @ Titrate IV .Q0M [facility] Rx#:[id number] Output: Urine 1245 405 865 Other: Voiding Method Indwelling Catheter Indwelling Catheter - Exam Physical Exam: 83-year-old on BiPAP, unresponsive to verbal or painful stimuli. Head: relatively unremarkable. HEENT:[Neck is supple.] [No neck masses.] [No thyromegaly.] Positive JVD.] PERRLA, EOMI, no icterus. Chest: [Diffuse crackles and rhonchi bilaterally. Cardiac Exam: [Normal S1 and S2, 2/6 systolic murmur throughout the precordium. No gallop. Abdomen: [Slightly distended, positive mild ascites, no rebound no guarding, no masses palpable. Extremities: [Scattered areas of bruising, 2+ by lateral bipedal edema, no clubbing, no cyanosis. Neurological Exam: unresponsive to verbal and painful stimuli. Lymphatics: No lymphadenopathy. - Labs CBC & Chem 7: 04/24/18 05:40 04/24/18 05:40 Labs: Abnormal Lab Results - Last 24 Hours (Table) 04/23/18 04/23/18 04/24/18 Range/Units 13:51 17:17 00:30 WBC (3.8-10.6) k/uL RBC (4.30-5.90) m/uL Hgb (13.0-17.5) gm/dL Hct (39.0-53.0) % MCV (80.0-100.0) fL Plt Count (150-450) k/uL Neutrophils # (Manual) (1.3-7.7) k/uL Lymphocytes # (Manual) (1.0-4.8) k/uL APTT 51.1 H (22.0-30.0) sec Chloride (98-107) mmol/L Carbon Dioxide (22-30) mmol/L BUN (9-20) mg/dL Glucose (74-99) mg/dL POC Glucose (mg/dL) 146 H 155 H (75-99) mg/dL Calcium (8.4-10.2) mg/dL Total Bilirubin (0.2-1.3) mg/dL Total Protein (6.3-8.2) g/dL Albumin (3.5-5.0) g/dL 04/24/18 04/24/18 04/24/18 Range/Units 05:40 05:40 05:50 WBC 10.8 H (3.8-10.6) k/uL RBC 3.20 L (4.30-5.90) m/uL Hgb 11.0 L (13.0-17.5) gm/dL Hct 34.0 L (39.0-53.0) % MCV 106.1 H (80.0-100.0) fL Plt Count 56 L (150-450) k/uL Neutrophils # (Manual) 10.00 H (1.3-7.7) k/uL Lymphocytes # (Manual) 0.54 L (1.0-4.8) k/uL APTT 61.5 H (22.0-30.0) sec Chloride 121 H (98-107) mmol/L Carbon Dioxide 16 L (22-30) mmol/L BUN 35 H (9-20) mg/dL Glucose 162 H (74-99) mg/dL POC Glucose (mg/dL) (75-99) mg/dL Calcium 7.7 L (8.4-10.2) mg/dL Total Bilirubin 1.9 H (0.2-1.3) mg/dL Total Protein 5.1 L (6.3-8.2) g/dL Albumin 2.2 L (3.5-5.0) g/dL 04/24/18 04/24/18 Range/Units 06:05 12:01 WBC (3.8-10.6) k/uL RBC (4.30-5.90) m/uL Hgb (13.0-17.5) gm/dL Hct (39.0-53.0) % MCV (80.0-100.0) fL Plt Count (150-450) k/uL Neutrophils # (Manual) (1.3-7.7) k/uL Lymphocytes # (Manual) (1.0-4.8) k/uL APTT (22.0-30.0) sec Chloride (98-107) mmol/L Carbon Dioxide (22-30) mmol/L BUN (9-20) mg/dL Glucose (74-99) mg/dL POC Glucose (mg/dL) 174 H 145 H (75-99) mg/dL Calcium (8.4-10.2) mg/dL Total Bilirubin (0.2-1.3) mg/dL Total Protein (6.3-8.2) g/dL Albumin (3.5-5.0) g/dL Assessment and Plan Assessment: Impression: 1 acute hypoxic respiratory failure mostly secondary to pulmonary edema,fluid overload, suspect underlying cardiomyopathy, could be systolic in nature however echocardiogram has not been done yet.In other words unable to determine , cardiology may evaluate the patient may recommend echocardiogram, however since the patient is going to comfort care measures, I don't think that would be necessary. 2 multiple comorbidities including cirrhosis of the liver, ascites, coagulopathy secondary to liver disease, thrombocytopenia secondary to liver disease, atrial fibrillation, hypertension, hypercholesterolemia, and dementia. Recommendation: fully agree with the daughter regarding comfort care measures, hospice may evaluate the patient today. Time with Patient: Less than 30
[2018-04-24] MEDS ORDERED: ATROPINE OPHTH SOLN 1% 5ML BTL SUBLINGUAL PRN (13:36)
[2018-04-24 13:44] VITALS: BP 114/66; PULSE 74; RESP 46
[2018-04-24] MEDS ORDERED: MORPHINE SULFATE (100 MG/2 ML) 100 MG in SODIUM CHLORIDE 0.9% 100 ML IV SCH (13:45)
[2018-04-24] MEDS ORDERED: SCOPOLAMINE 1.5MG/72HR PATCH TRANSDERM SCH (13:45)
[2018-04-24] MEDS: MORPHINE SULFATE 2 MG/ML SYRINGE IV PRN ×2 (13:55→14:03)
--- NOTE | 2018-04-24 17:20 | P.DS ---
Providers Date of admission: 04/20/18 04:34 Expected date of discharge: 04/24/18 Attending physician: Maxi Thompson MD Consults: 04/22/18 07:32 Consult Physician Urgent Consulting Provider: Lizzette Chapman Consult Reason/Comments: Cirrhosis, hepatitis panel negative Do you want consulting provider notified?: Yes 04/22/18 21:21 Consult Physician Routine Consulting Provider: Gaston Hare Consult Reason/Comments: left acute DVT, low plat, ?IVC filter Do you want consulting provider notified?: Yes 04/22/18 23:12 Consult Physician Routine Consulting Provider: Efrem Acuna Consult Reason/Comments: thrombocytopenia, with acute DVT Do you want consulting provider notified?: Yes 04/23/18 08:39 Consult Physician Stat Consulting Provider: Naomi Roca Consult Reason/Comments: respiratory distress Do you want consulting provider notified?: Already Contacted 04/23/18 19:16 Consult Physician Routine Consulting Provider: Jim Morton Consult Reason/Comments: afib rvr Do you want consulting provider notified?: Already Contacted Primary care physician: [facility] Course: Patient 83 yo M with PMH of CAD s/p CABG, Afib, HTN, HLD, and dementia presented to the ED after being found by family members in his house on the ground and confused. He was previously seen 24 hours ago by a family member. As per the daughter, the patient ambulated with a cane and though previously highly functional, had recently declined with episodes of confusion, urinary incontinence, and falls. In the ED, his CK was 3000+, with elevated lactate and troponin. Furthermore, she endorsed a recent history of gradually worsening LE and abdominal swelling. The patient was started on IV fluids for rhabdomyolysis with subsequent improvement in his CK levels. The patient's mentation initially improved, on , the patient was noted to be hyperventilating and more agitated. The LE duplex study was positive for acute DVT of LLE, in light of which Heparin infusion was initiated. CXR revealed pleural effusions and rick infiltrates, suspicious for pulmonary edema. The patient was given Lasix 40 mg IVP x 2 and was placed on high flow oxygen and subsequently switched to BiPAP. Furthermore, he was started on Vancomycin and Zosyn for suspected pneumonia and was transferred to ICU. Discussed with daughter (ADONIS) at the bedside. The patient was started on IV pressors w/ Vasopressin and Norepinephrine and was maintained for 24 hours. The patient's family (daughter, son) reinforced their father's wishes of not wanting aggressive interventions or life-support and decided to transition him towards comfort care. The patient was weaned off the presser support and BiPAP and placed on morphine infusion. He on 04/24/18 at 1628. Family was at the bedside. Physical Examination General: Elderly M, pale, no spontaneous movements HEENT: NC/AT, anicteric sclerae, fixed and dilated pupils Cardiovascular: No heart sounds appreciated Lungs: No breath sounds appreciated Abdominal: Soft, no bowel sounds appreciated Skin: Cold, dry Extremities: 2+ LE edema rick Psychiatric: Unresponsive Neuro: Unresponsive, no spontaneous movements Discharge diagnosis: Septic shock, Acute hypoxic respiratory failure ( multifactorial), suspected PE, aspiration pnuemonia, pulmonary edema in setting of cirrhosis, Rhabdomyolysis, HTN, CAD, Afib, Leukocytosis A total of 60 minutes of time were spent preparing this complex discharge summary. Plan - Discharge Summary Discharge Rx Participant: No New Discharge Prescriptions: No Action metFORMIN HCL ER [Glucophage Xr] 500 mg PO PC-SUPPER Simvastatin [Zocor] 20 mg PO HS amLODIPine [Norvasc] 2.5 mg PO DAILY Memantine [Namenda] 10 mg PO BID Metoprolol Succinate [Toprol Xl] 25 mg PO DAILY Discharge Medication List Memantine [Namenda] 10 mg PO BID 04/20/18 [History] Metoprolol Succinate [Toprol Xl] 25 mg PO DAILY 04/20/18 [History] Simvastatin [Zocor] 20 mg PO HS 04/20/18 [History] amLODIPine [Norvasc] 2.5 mg PO DAILY 04/20/18 [History] metFORMIN HCL ER [Glucophage Xr] 500 mg PO PC-SUPPER 04/20/18 [History] Discharge Disposition: - Preliminary Cause of Preliminary Cause of : Aspiration pneumonia
[2018-04-25] MEDS ORDERED: VANCOMYCIN TROUGH DUE 1 EACH MISC MISCELLANE ONE (08:00)
[2018-04-26 16:00] LABS: Gamma Globulin 1.22 g/dL (0.70-1.50)
--- NOTE | 2018-04-27 08:27 | CDI ---
Last Revision, July 2017 Documentation Clarification Form Date: 04/27/18 From: Susan Jackson Phone: If you have a question regarding this query, please contact Nereyda Cooley at [phone] between 8am and 5pm. Admit Date: 04/20/2018 4:34:00 AM Patient Name: Benito Wheatley Visit Number: [id number] Discharge Date: 04/24/18 ATTENTION: The Clinical Documentation Specialists (CDI) and [facility] Coding Staff appreciate your assistance in clarifying documentation. Please respond to the clarification below the line at the bottom and electronically sign. The CDI & [facility] Coding staff will review the response and follow-up if needed. Please note: Queries are made part of the Legal Health Record. If you have any questions, please contact the author of this message via ITS. Jim Vasquez MD CHF is documented in your consult note and in the ED note History/Risk Factors:.Patient was admitted with a fall and being down for several hours. The patient had rhabomyolosis, elevated troponin, leukocytosis, chronic afib and hypertension. Clinical Indicators: Per documentation in your consult note, Dr. Roca's consult note and 04/24 progress note, discharge summary and Dr. Crawford's 04/23 progress note, the patient was noted to have pulmonary edema on x-ray. VS/Pulse OX: T. 96.8, P. 73, R. 18 - 24, BP134/66, Pulse Ox. 97 BNP: 4370 Echocardiogram Results: Overall left ventricular systolic function is normal with an EF between 55 - 60%. Chest X Ray: 04/20: There is mild congestion. Impression: Poor inspiration. Possible congestive heart failure. Limited exam. Treatment: IV Lasix 20 mg x 1, then IV Lasix 40 mg x 2 In your professional opinion, can you please clarify the acuity and type of CHF if known? Systolic Heart Failure: Acute Chronic Acute on Chronic Diastolic Heart Failure: Acute Chronic Acute on Chronic Systolic & Diastolic Heart Failure: Acute Chronic Acute on Chronic Heart Failure Unable to Determine Other, please specify_:__acute on chronic diastolic congestive heart failure_ MTDD
--- NOTE | 2018-04-27 08:49 | CDI ---
Last Revision, July 2017 Documentation Clarification Form Date: 04/27/18 From: Susan Jackson Phone: If you have a question regarding this query, please contact Nereyda Cooley at [phone] between 8am and 5pm. Admit Date: 04/20/2018 4:34:00 AM Patient Name: Benito Wheatley Visit Number: [id number] Discharge Date: 04/24/18 ATTENTION: The Clinical Documentation Specialists (CDI) and [facility] Coding Staff appreciate your assistance in clarifying documentation. Please respond to the clarification below the line at the bottom and electronically sign. The CDI & [facility] Coding staff will review the response and follow-up if needed. Please note: Queries are made part of the Legal Health Record. If you have any questions, please contact the author of this message via ITS. Dr. Ashu Crawford MD Septic shock has been documented in your 04/23 progress notes and discharge summary: History/Risk Factors: The patient was found down on the ground by his family who believed that the patient had been dowon at least 24 hours. The patient was confused on admission and was found to have rhabdomyolosis, acute metabolic encephalopathy, leukocytosis and has a history of hypertension, dementia and diabetes. Clinical Indicators: Confusion, leukocytosis WBC/Left shift: 17.7/16.0 Lactic Acid: 3.2 Blood Cultures: Not done Vital signs on admission: T. 96.8, P. 73, R. 18 - 24, BP 134/66, Treatment: Fluid Bolus: Sodium chloride 2,000 mls @ 999 mls/hr Antibiotics: IV Zosyn started on 04/23 and IV Vanco started on 04/23 Definition of Present on Admission (POA): A diagnosis present at the time the order for admission to inpatient status was written. For each diagnosis, documentation must be clear to determine if the condition was present at the time of the patients inpatient admission or developed during the hospital stay. Please clarify in progress notes and discharge summary as to whether Septic Shock was: Y = Yes, the condition was present at the time of the order for inpatient admission. N = No, the condition was not present at the time of the order for inpatient admission. W = Clinically undetermined if the condition was present at the time of the order for inpatient admission. No, condition not present at time of the order for inpatient admission MTDD
--- NOTE | 2018-04-27 09:06 | CDI ---
Last Revision, July 2017 Documentation Clarification Form Date: 04/27/18 From: Susan Jackson Phone: If you have a question regarding this query, please contact Nereyda Cooley at [phone] between 8am and 5pm. Admit Date: 04/20/2018 4:34:00 AM Patient Name: Benito Wheatley Visit Number: [id number] Discharge Date: 04/24/18 ATTENTION: The Clinical Documentation Specialists (CDI) and [facility] Coding Staff appreciate your assistance in clarifying documentation. Please respond to the clarification below the line at the bottom and electronically sign. The CDI & [facility] Coding staff will review the response and follow-up if needed. Please note: Queries are made part of the Legal Health Record. If you have any questions, please contact the author of this message via ITS. Ashu Glaser MD Aspiration pneumonia has been documented in your 04/22 and 04/23 progress notes and in your discharge summary. Dr. Roca documentes "Underlying pneumonia or aspiration pneumonia is not entirely ruled out": History/Risk Factors: The patient was found down on the ground by his family who believed that the patient had been dowon at least 24 hours. The patient was confused on admission and was found to have rhabdomyolosis, acute metabolic encephalopathy, leukocytosis and has a history of hypertension, dementia and diabetes. Clinical Indicators: Leukocytosis. Per Dr. Hare's conult note, the patient was very short of breath and was using BiPAP. Per your 04/23 progress note, the patieint's lungs with rales bilateraly and course breath sounds. WBC/Left Shift: 17.7/16.0 X-ray: 04/20: Poor inspiration. Possible congestive heart failure. Limited exam. 04/21: Bilateral consolidation and pleural effusion. Correlate for underlying pneumonia versus CHF. Treatment: IV Zosyn and IV Vancomycin started on 04/23/18 Definition of Present on Admission (POA): A diagnosis present at the time the order for admission to inpatient status was written. For each diagnosis, documentation must be clear to determine if the condition was present at the time of the patients inpatient admission or developed during the hospital stay. Please clarify in progress notes and discharge summary as to whether aspiration pneumonia was: Y = Yes, the condition was present at the time of the order for inpatient admission. N = No, the condition was not present at the time of the order for inpatient admission. W = Clinically undetermined if the condition was present at the time of the order for inpatient admission. No, not present at admission MTDD
== END 2018-04-24 18:33 | disposition expired | DRG 557 ==
LOC: EC 00:29 → 6SEL 04:34 → 6ICU 04-23 07:48
PROVIDERS: ADMIT Internal Medicine; ATTEND Internal Medicine
DX: M62.82 Rhabdomyolysis (principal); G93.41 Metabolic encephalopathy; J96.01 Acute respiratory failure with hypoxia; A41.9 Sepsis, unspecified organism; R65.21 Severe sepsis with septic shock; J69.0 Pneumonitis due to inhalation of food and vomit; I26.99 Other pulmonary embolism without acute cor pulmonale; I50.33 Acute on chronic diastolic (congestive) heart failure; J81.1 Chronic pulmonary edema; R18.8 Other ascites; D68.4 Acquired coagulation factor deficiency; E87.2 Acidosis; I82.402 Acute embolism and thrombosis of unspecified deep veins of left lower extremity; I42.9 Cardiomyopathy, unspecified; I48.2 Chronic atrial fibrillation; I25.10 Atherosclerotic heart disease of native coronary artery without angina pectoris; I11.0 Hypertensive heart disease with heart failure; D53.9 Nutritional anemia, unspecified; Z66 Do not resuscitate; K74.60 Unspecified cirrhosis of liver; Z51.5 Encounter for palliative care; D69.59 Other secondary thrombocytopenia; E11.9 Type 2 diabetes mellitus without complications; E78.00 Pure hypercholesterolemia, unspecified; E78.5 Hyperlipidemia, unspecified; E86.0 Dehydration; F03.90 Unspecified dementia, unspecified severity, without behavioral disturbance, psychotic disturbance, mood disturbance, and anxiety; H35.30 Unspecified macular degeneration; E66.9 Obesity, unspecified; I71.4 Abdominal aortic aneurysm, without rupture; R29.6 Repeated falls; R26.2 Difficulty in walking, not elsewhere classified; R32 Unspecified urinary incontinence; M25.552 Pain in left hip; R19.7 Diarrhea, unspecified; R77.9 Abnormality of plasma protein, unspecified; L89.321 Pressure ulcer of left buttock, stage 1; Z79.84 Long term (current) use of oral hypoglycemic drugs; Z79.899 Other long term (current) drug therapy; Z95.1 Presence of aortocoronary bypass graft; Z68.28 Body mass index [BMI] 28.0-28.9, adult; Z83.3 Family history of diabetes mellitus; W18.30XA Fall on same level, unspecified, initial encounter; Y92.009 Unspecified place in unspecified non-institutional (private) residence as the place of occurrence of the external cause
CPT/HCPCS: 36415; 51702; 70450; 71045; 72170; 74230; 76700; 80053; 81001; 82103; 82105; 82140; 82306; 82390; 82550; 82553; 82607; 82746; 83036; 83516; 83605; 83690; 83735; 83880; 84100; 84165; 84484; 85025; 85027; 85610; 85730; 86038; 86706; 86780; 86803; 87340; 93005; 93306; 93970; 94640; 94660; 96360; 96372; 99285